=== PATIENT | male | born 1955 | race Caucasian/White ===

== ENCOUNTER → 2018-08-21 13:30 | Outpatient (CLI) | payer OTHER, SELFPAY ==
--- NOTE | 2018-08-21 | DI.US.S_ITS ---
PROCEDURE: US ABDOMEN COMPLETE INDICATIONS: Right lower quadrant pain TECHNIQUE: Real-time scanning was performed of the abdominal and retroperitoneal organs, with image documentation. COMPARISON: None. FINDINGS: Liver: Liver is mildly enlarged in size and homogeneous in echotexture. Gallbladder: Gallbladder is within normal limits. Normal wall thickness at 1.0 mm. No pericholecystic fluid or Gil sign. Biliary ducts: Intrahepatic bile ducts are not significantly dilated. Extrahepatic bile duct caliber measures 8 mm. Normal is 6-7 mm or less in diameter, or 10 mm or less post-cholecystectomy. Pancreas: Pancreatic duct is mildly dilated measuring 4 mm in the pancreatic body. Visualized portions of the pancreas are sonographically normal. No visible pancreatic head mass or calcification. Spleen: Spleen is normal in size and homogeneous in echotexture. Kidneys: Kidneys are normal in size and echotexture. Right kidney measures 12.7 cm long; left kidney measures 13.8 cm long. No hydronephrosis or nephrolithiasis. No solid masses. Aorta: Visualized aorta is normal in caliber at less than 3 cm. Iliacs: Proximal common iliac arteries are normal in caliber at less than 2.5 cm. IVC: Intrahepatic inferior vena cava is patent. Miscellaneous: No free abdominal fluid. The appendix was not visible. IMPRESSION: 1. Mild common bile duct and pancreatic duct dilatation. This implies edema or obstruction at the pancreatic head. Further evaluation with cross-sectional imaging such as CT or MRI with contrast is recommended for further evaluation. 2. No cholelithiasis. 3. Mild hepatomegaly. Dictated by: Celia Kyle M.D. on 08/21/2018 at 15:49 Approved by: Celia Kyle M.D. on 08/21/2018 at 15:53
[2018-08-21 14:12] LABS: Add Manual Diff / Slide Review NO; Basophils Absolute Auto 0 /uL (0-100); Basophils Percent Auto 0.4 % (0-2); Eosinophils Absolute Auto 100 /uL (0-450); Eosinophils Percent Auto 1.4 % (2-4); Hematocrit 49.5 % (41-53); Hemoglobin 16.3 g/dL (13.5-17.5); Lymphocytes Absolute Auto 2000 /uL (1100-4500); Lymphocytes Percent Auto 29.8 % (25-40); Mean Corpuscular HGB Conc 32.9 % (30-36); Mean Corpuscular Hemoglobin 31.6 PG (26-34); Monocytes Absolute Auto 600 /uL (0-900); Monocytes Percent Auto 8.6 % (3-14); Neutrophils Absolute Auto 4100 /uL (1500-7000); Neutrophils Percent Auto 59.8 % (50-75); Platelet Count 269 X10^3/uL (150-400); Red Blood Cell Count 5.16 X10^6/uL (4.5-5.9); Red Cell Distribution Width 13.6 % (11.6-14.8); White Blood Cell Count 6.8 X10^3/uL (4.5-11.0)
[2018-08-21 16:50] LABS: Alanine Aminotransferase 81 IU/L (21-72); Albumin 4.6 g/dL (3.5-5.0); Albumin Globulin Ratio 1.5 (1.0-2.8); Alkaline Phosphatase 74 U/L (38-126); Aspartate Aminotransferase 56 IU/L (17-59); BUN Creatinine Ratio 18.8 (6-22); Bilirubin Total 0.8 mg/dL (0.2-1.3); Blood Urea Nitrogen 15 mg/dL (9-20); Calcium 9.4 mg/dL (8.4-10.2); Carbon Dioxide 24 mmol/L (22-32); Chloride 101 mmol/L (98-107); Estimated Glomerular Filt Rate > 60.0 mL/min (>60); Globulin 3.1 g/dL (1.7-4.1); Glucose 99 mg/dL (80-110); HEMOLYSIS 27 (0-50); Lipase 23 U/L (23-300); Sodium 137 mmol/L (137-145); Total Protein 7.7 g/dL (6.3-8.2)
== END ==
PROVIDERS: Family Provider Internal Medicine; PCP Internal Medicine; Visit Provider Internal Medicine
DX: R10.31 Right lower quadrant pain (principal); K83.8 Other specified diseases of biliary tract; K86.89 Other specified diseases of pancreas; R16.0 Hepatomegaly, not elsewhere classified
CPT/HCPCS: 36415; 76700; 80053; 83690; 85025

== ENCOUNTER → 2018-09-03 08:07 | Outpatient (CLI) | payer OTHER, SELFPAY ==
--- NOTE | 2018-09-03 08:10 | DI.MRI.S_ITS ---
PROCEDURE: MR ABDOMEN WO/W CON INDICATIONS: PANCREATIC DUCT DILATE/RIGHT LOWER QUAD PAIN TECHNIQUE: Coronal HASTE, axial 2D FLASH in- and [id number]; axial breath-hold T2 FSE with fat saturation from the hepatic dome to the iliac crests. Oblique coronal thin-slice and radial thick slab HASTE through the biliary system. Dynamic axial VIBE during administration of contrast. Post-contrast coronal VIBE or 2D FLASH with fat saturation from the hepatic dome to the iliac crests. Optional diffusion weighted imaging and ADC may be performed. COMPARISON: None. FINDINGS: Image quality: Patient motion artifact limits evaluation of the postcontrast study. Pancreas and biliary system: The pancreatic duct measures up to 6 mm in diameter in the body of the pancreas. The common bile duct measures up to 12 mm in diameter. There is conventional pancreatic ductal anatomy. There is a questionable filling defect within the central portion of the common bile duct. This has a layered appearance (series 5, image 28), and may represent layering sludge within the common bile duct. There is no definite enhancement of this region on the postcontrast images. However, motion artifact somewhat limits evaluation. Solid organs: Liver is normal in size and enhancement. Gallbladder is unremarkable. Spleen is normal in size and enhancement. No adrenal nodules. Kidneys are normal in size and enhancement, without hydronephrosis. Nodes and vessels: No retroperitoneal or mesenteric adenopathy by size criteria. Aorta and inferior vena cava are normal in size. Bowel and peritoneum: Unenhanced bowel loops are normal in caliber throughout. No free fluid. Lung bases: No basal pleural effusions. Heart size is normal. Bones and soft tissues: No ventral hernias. Bone marrow is normal in overall signal. IMPRESSION: 1. Limited study due to patient motion artifact. 2. Questionable filling defect which has a layered appearance within the central common bile duct as described above. Although there is no definite enhancement of this region, postcontrast images are limited by patient motion artifact. This may represent sludge layered within the common bile duct. However, if there is clinical suspicion for neoplasm, ERCP may be warranted. 2. Mild pancreatic ductal dilatation within the body. Conventional pancreatic ductal anatomy. Dictated by: Wandy Ramey M.D. on 09/03/2018 at 13:30 Approved by: Wandy Ramey M.D. on 09/03/2018 at 13:36
--- NOTE | 2018-09-03 10:42 | PC.NURSE ---
Line Access: 4 attempts made w/o ultrasound and finally got it on the 3rd attempt with ultrasound. Flushes and withdraws well. pt getting an MRI scan.
== END ==
PROVIDERS: Family Provider Internal Medicine; PCP Internal Medicine; Visit Provider Internal Medicine
DX: K86.89 Other specified diseases of pancreas (principal); R10.31 Right lower quadrant pain
CPT/HCPCS: 74183; A9579

== ENCOUNTER → 2018-10-22 11:11 | Outpatient (CLI) | payer OTHER, SELFPAY ==
[2018-10-22 12:53] LABS: Alanine Aminotransferase 35 IU/L (21-72); Albumin 4.2 g/dL (3.5-5.0); Albumin Globulin Ratio 1.4 (1.0-2.8); Alkaline Phosphatase 51 U/L (38-126); Aspartate Aminotransferase 35 IU/L (17-59); Bilirubin Total 0.9 mg/dL (0.2-1.3); Bilirubin Unconjugated 0.4 mg/dL (0.0-1.1); Globulin 3.1 g/dL (1.7-4.1); Lipase 186 U/L (23-300); Total Protein 7.3 g/dL (6.3-8.2)
[2018-10-22 13:11] LABS: HEMOLYSIS 94 (0-50)
== END ==
PROVIDERS: Family Provider Internal Medicine; PCP Internal Medicine; Visit Provider Internal Medicine Gastroenterology
DX: R93.3 Abnormal findings on diagnostic imaging of other parts of digestive tract (principal)
CPT/HCPCS: 36415; 80076; 83690

== ENCOUNTER → 2019-07-27 12:41 | Outpatient (CLI) | payer OTHER, SELFPAY ==
--- NOTE | 2019-07-27 | DI.MRI.S_ITS ---
PROCEDURE: MR SHOULDER RT WO CON INDICATIONS: Pain in right shoulder TECHNIQUE: Axial fat-suppressed T2-weighted, T1-weighted, Coronal fat-suppressed T2-weighted pulsing was as were performed through the right shoulder however the patient declined to complete the examination secondary to severe discomfort. COMPARISON: None. FINDINGS: Image quality: Excellent. Rotator cuff: Severe supraspinatus and infraspinatus tendinopathy, with partial thickness articular sided tear of the infraspinatus tendon measuring approximately 7 mm and at least 50% of tendon thickness. There is also partial thickness articular sided supraspinatus tear measuring 7 mm at the junction of the critical zone and footprint, probably involving 50% of tendon thickness. Subscapularis tendinopathy and thickening is noted. Visualized portions of the teres minor unavailable pulse sequences grossly unremarkable. Evaluation for rotator cuff muscle atrophy is suboptimal due to lack of all pulse sequences. Bones and bursae: No bone marrow contusions or fractures. Severe hypertrophic acromioclavicular joint degeneration. Severe glenohumeral degenerative joint disease with subchondral cystic change, sclerosis and spurring. Acromion demonstrates conventional anatomy, without an os acromiale. Mild subacromial-subdeltoid bursitis. Capsule and soft tissues: Labrum: Ill-defined macerated tear of the labrum is seen circumferentially there is also slight posterior subluxation of the humeral head relative to the glenoid suggesting microinstability. 5 mm superior para labral cyst noted on image 8/8. Long head of the biceps tendon tendinopathy is seen with intrasubstance signal change. The intra-articular segment is not well visualized suggesting high-grade tendinopathy/partial rupture, or complete rupture recommend correlation to clinical examination findings. IMPRESSION: Suboptimal evaluation secondary to premature termination of the exam due to severe discomfort as detailed above Supraspinatus and infraspinatus tendinopathy with partial-thickness articular sided tear of the tendon probably at least 50% of tendon thickness as detailed above Subscapularis tendinopathy and thickening Severe degenerative joint disease Macerated circumferential tear labrum likely chronic/degenerative. There is slight posterior subluxation of the humerus relative to the glenoid suggestive of microinstability Intra-articular segment of the long head biceps tendon not well seen, potentially indicating high-grade tendinopathy/partial or complete rupture. Mild subacromial-subdeltoid bursitis Dictated by: Spike Martinez M.D. on 07/29/2019 at 9:45 Approved by: Spike Martinez M.D. on 07/29/2019 at 10:01
== END ==
PROVIDERS: Family Provider Internal Medicine; PCP Internal Medicine; Referring Provider Orthopaedic Surgery; Visit Provider Orthopaedic Surgery
DX: M25.511 Pain in right shoulder (principal); M75.111 Incomplete rotator cuff tear or rupture of right shoulder, not specified as traumatic; S43.491A Other sprain of right shoulder joint, initial encounter; M19.011 Primary osteoarthritis, right shoulder; M75.51 Bursitis of right shoulder
CPT/HCPCS: 73221

== ENCOUNTER → 2020-03-13 12:17 | Outpatient (CLI) | payer OTHER, SELFPAY ==
--- NOTE | 2020-03-13 12:20 | DI.RAD.S_ITS ---
PROCEDURE: XR FOOT RT MIN 3V INDICATIONS: Persistent right foot pain TECHNIQUE: 3 views of the foot were acquired. COMPARISON: [facility], , FOOT 2V LEFT, 03/29/2010, 13:01. [facility], , FOOT 2V LEFT, 12/30/2008, 10:44. FINDINGS: Bones: No fractures or dislocations. Note is made of a moderate degree of 1st MTP joint osteoarthritis, with joint space narrowing. No suspicious bony lesions. Soft tissues: No tibiotalar joint effusion. Achilles tendon appears normal. 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 When compared to the left foot plain films the right 1st MTP joint osteoarthritis is asymmetrically prominent when compared to a minimal degree of degeneration on the left. Dictated by: Abhay Colunga M.D. on 03/13/2020 at 13:04 Approved by: Abhay Colunga M.D. on 03/13/2020 at 13:06
== END ==
PROVIDERS: Family Provider Internal Medicine; PCP Family Medicine; Referring Provider Family Medicine; Visit Provider Family Medicine
DX: M79.671 Pain in right foot (principal); M19.071 Primary osteoarthritis, right ankle and foot
CPT/HCPCS: 73630

== ENCOUNTER → 2020-05-11 09:21 | Outpatient (CLI) | payer OTHER, SELFPAY ==
[2020-05-11 10:37] LABS: COVID19 -Nasal RAPID Negative (Negative)
== END ==
PROVIDERS: Family Provider Internal Medicine; PCP Family Medicine; Visit Provider Nurse Practitioner
DX: Z20.828 Contact with and (suspected) exposure to other viral communicable diseases (principal)
CPT/HCPCS: 87635

== ENCOUNTER → 2020-05-13 15:24 | Outpatient (CLI) | payer OTHER, SELFPAY ==
--- NOTE | 2020-05-13 18:38 | DI.NM.S_ITS ---
DATE OF SERVICE: 05/13/2020 PROCEDURE: Exercise perfusion study. CARDIAC STRESS: The patient underwent exercise stress test under the supervision of an attending staff. He walked on Brannon protocol for 7 minutes 21 seconds and achieved 75 percent of target heart rate and normal blood pressure response. The test was discontinued as he could not keep up with treadmill due to his previous leg injury. No active chest pain or significant cardiovascular symptoms. Baseline EKG revealed sinus rhythm. At 5 minutes into exercise, patient started having frequent PVCs, including bigeminy pattern. The patient has both monomorphic ,as well as polymorphic PVCs. Continue toward recovery until 4 minutes of recovery, when it got suppressed. CONCLUSIONS: Submaximal exercise. His stress test was negative for inducible ischemia. The patient achieved 75 percent of target heart rate. Functional aerobic impairment positive 9 percent. Could not keep up with treadmill due to previous injury. Normal blood pressure response. Frequent PVCs during exercise without any ventricular tachycardia. The PVCs were monomorphic, as well as polymorphic. Clinical correlation is recommended. Isac Ashby - Randy/mark doc#: [id number]/job#: [id number] dd: 05/13/2020 17:31:00 dt: 05/13/2020 18:18:00 DICTATING /COPIES TO: Chip Wright MD COPIES MNE: VICENTE;
== END ==
PROVIDERS: Family Provider Internal Medicine; PCP Family Medicine; Referring Provider Family Medicine; Visit Provider Family Medicine
DX: I25.2 Old myocardial infarction (principal); I10 Essential (primary) hypertension
CPT/HCPCS: 93017

== ENCOUNTER → 2020-08-08 11:09 | Outpatient (CLI) | payer OTHER, SELFPAY ==
[2020-08-08 14:53] LABS: COVID19 -Nasal RAPID Negative (Negative)
== END ==
PROVIDERS: Family Provider Internal Medicine; PCP Family Medicine; Visit Provider Physician Assistant
DX: Z20.822 Contact with and (suspected) exposure to COVID-19 (principal)
CPT/HCPCS: 87635

== ENCOUNTER → 2020-08-11 09:30 | Outpatient (CLI) | payer OTHER, SELFPAY ==
[2020-08-11 11:46] LABS: Magnesium 1.9 mg/dL (1.6-2.3)
[2020-08-11 12:15] LABS: Thyroid Stimulating Hormone 3.83 uIU/mL (0.47-4.68)
== END ==
PROVIDERS: Family Provider Internal Medicine; PCP Family Medicine; Referring Provider Internal Medicine Cardiovascular Disease; Visit Provider Internal Medicine Cardiovascular Disease
DX: I10 Essential (primary) hypertension (principal)
CPT/HCPCS: 36415; 83735; 84443

== ENCOUNTER 2020-11-28 15:31 | Emergency (ER) | payer OTHER, SELFPAY ==
[2020-11-28] VITALS (7 sets, daily range): BP systolic 119–127; BP diastolic 66–77; PULSE 65–83; RESP 10–26; TEMP 37.1; O2SAT 92–98; BMI 29.5
--- NOTE | 2020-11-28 15:53 | ED_ITS ---
HPI - Overdose General Chief Complaint: Toxicology Problem Stated Complaint: Oxycodone OD Time Seen by Provider: 11/28/20 15:31 Source: patient and EMS Mode of arrival: EMS Limitations: no limitations History of Present Illness HPI Narrative: Patient is 65-year-old male who presents with opiate overdose. He says he takes dilaudid and oxycodone for chronic ongoing neck pain. He broke his neck 2 and half years ago and since then has been on pain medication. He says he has not taken any stress today he does not use heroin. He was found unresponsive at the [employer] shop. He was given 2 mg of Narcan intranasally and it had no effect he was then given and I 0 with 1 mg and he woke. He denies any suicidal or homicidal ideations. He apparently had 1 alcoholic beverage as well. states that this happened to him once before when he combined alcohol and opiates. Related Data Home Medications Medication Instructions Recorded Confirmed [id number] 1 tab PO DAILY 08/02/19 10/05/20 tablet (Cerovite Senior) aspirin 81 mg tablet,delayed 81 mg PO DAILY 03/28/20 11/28/20 release (Adult Aspirin Regimen) hydromorphone 8 mg tablet 8 mg PO Q4H PRN 11/28/20 11/28/20 multivitamin-iron (hematinic) 1 tab PO DAILY 11/28/20 11/28/20 oxycodone 20 mg tablet 20 mg PO Q4H PRN 11/28/20 11/28/20 oxycodone 40 mg tablet,extended 40 mg PO BID 11/28/20 11/28/20 release,12 hr Previous Rx's Medication Instructions Recorded cetirizine 10 mg tablet See Rx Instructions .ROUTE 01/13/20 .COMPLEX #90 tab metoprolol tartrate 25 mg tablet 25 mg PO BID #180 tab 03/13/20 atorvastatin 80 mg tablet 80 mg PO BEDTIME #90 tab 04/03/20 clopidogrel 75 mg tablet 75 mg PO DAILY #90 tab 04/03/20 lisinopril 5 mg tablet 5 mg PO DAILY #90 tab 04/03/20 sildenafil 100 mg tablet 100 mg PO DAILY PRN #10 tab 10/05/20 duloxetine 60 mg capsule,delayed See Rx Instructions .ROUTE 10/15/20 release .COMPLEX #90 cap gabapentin 100 mg capsule 100 mg PO TID #270 cap 10/15/20 gabapentin 800 mg tablet See Rx Instructions .ROUTE 10/15/20 .COMPLEX #270 tablet tamsulosin 0.4 mg capsule See Rx Instructions .ROUTE 10/15/20 .COMPLEX #90 cap Allergies Allergy/AdvReac Type Severity Reaction Status Date / Time poison oak extract Allergy Severe severe Verified 05/11/20 11:44 blistering/spreading rash Review of Systems Review of Systems Narrative: GENERAL: Denies chills, fatigue, malaise, fever, sweats, travel HEENT: Denies sinus pain, ear pain, sore throat, difficulty swallowing, neck pain RESPIRATORY: Denies dyspnea, cough, wheezing, hemoptysis, sputum. CARDIOVASCULAR: Denies chest pain, palpitations, orthopnea, edema GASTROINTESTINAL: Denies nausea, vomiting, abdominal pain, diarrhea, constipation, melena. : Denies dysuria, frequency, incontinence, hematuria, urinary retention, flank pain. MUSCULOSKELETAL: Denies weakness, joint pain, or bony pain SKIN: No rash, no erythema, no pruritus NEUROLOGIC: Denies weakness, dizziness, headache, numbness, change in speech, confusion PSYCHIATRIC: No concerning psychosocial issues. 12 point review of systems is negative except for those stated above and HPI Patient History Medical History (Updated 11/28/20 @ 17:58 by Sandy Cochran DO) Erectile dysfunction Hallux valgus (acquired), right foot Hypertension Muscle spasm Myocardial infarction Right foot pain Seasonal allergic rhinitis Social History Smoking Status: Current every day smoker Smokeless tobacco user: other quit status: considering quitting alcohol intake: current substance use type: does not use Smoking Status: Current every day smoker alcohol intake frequency: 0-2 drinks per day Alcohol type: beer Substance Use Type: opiates Exam Initial Vital Signs Initial Vital Signs: Vital Signs Temperature 98.8 F 11/28/20 15:33 Pulse Rate 83 11/28/20 15:33 Respiratory Rate 14 11/28/20 15:33 Blood Pressure 119/77 11/28/20 15:33 Pulse Oximetry 95 11/28/20 15:33 GENERAL: Awake alert 65-year-old male able to follow commands and answer questions HEENT: Head atraumatic,EOMI, pupils reactive, face symmetric, [moist] mucous membranes CARDIOVASCULAR: Regular rate and rhythm without murmurs, rubs or gallops. RESPIRATORY: Breath sounds equal bilaterally, no wheezes rales or rhonchi. ABDOMEN: Soft, nontender. Normoactive bowel sounds all 4 quadrants. No guarding or rebound. EXTREMITIES: Normal range of motion, no clubbing or edema. Neurovascularly intact. IO right leg NEUROLOGICAL: Alert and oriented x4. 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 Course Orders Ordered: Discontinued Medications Sodium Chloride (Normal Saline 0.9%) 1,000 mls @ 150 mls/hr IV CONT LEV Last Infusion: 11/28/20 18:07 Dose: 0 mls/hr Documented by: Admin: 11/28/20 16:21 Dose: 150 mls/hr Documented by: FRANCINE Vital Signs Vital signs: Vital Signs - 8 hr 11/28/20 15:33 Temperature 98.8 F Pulse Rate 83 Respiratory Rate 14 Blood Pressure 119/77 Pulse Oximetry 95 MDM - Overdose Lab Data Result diagrams: 11/28/20 15:36 11/28/20 15:36 Labs: Lab Results 11/28/20 11/28/20 11/28/20 Range/Units 15:36 15:36 16:45 WBC 5.4 (4.5-11.0) X10^3/uL RBC 4.55 (4.5-5.9) X10^6/uL Hgb 14.3 (13.5-17.5) g/dL Hct 42.7 (41-53) % MCV 93.9 (80-100) fL MCH 31.4 (26-34) PG MCHC 33.5 (30-36) % RDW 13.5 (11.6-14.8) % Plt Count 215 (150-400) X10^3/uL Neut % (Auto) 52.9 (50-75) % Lymph % (Auto) 36.3 (25-40) % Florence % (Auto) 5.9 (3-14) % Eos % (Auto) 1.4 L (2-4) % Baso % (Auto) 3.5 H (0-2) % Neut # (Auto) 2900 (3607-2357) /uL Lymph # (Auto) 2000 (0296-1439) /uL Florence # (Auto) 300 (0-900) /uL Eos # (Auto) 100 (0-450) /uL Baso # (Auto) 200 H (0-100) /uL Sodium 137 (137-145) mmol/L Potassium 4.0 (3.4-5.1) mmol/L Chloride 104 (98-107) mmol/L Carbon Dioxide 21 L (22-32) mmol/L BUN 14 (9-20) mg/dL Creatinine 0.80 (0.66-1.25) mg/dL Estimated GFR > 60.0 (>60) mL/min BUN/Creatinine Ratio 17.5 (6-22) Glucose 176 H (80-110) mg/dL Calcium 8.8 (8.4-10.2) mg/dL Total Bilirubin 0.5 (0.2-1.3) mg/dL AST 91 H (17-59) IU/L ALT 119 H (<50) IU/L Alkaline Phosphatase 49 (38-126) U/L Total Creatine Kinase 54 L (55-170) U/L CK-MB (CK-2) TNP CK-MB (CK-2) Rel Index TNP Troponin I < 0.012 (0.01-0.034) ng/mL Total Protein 6.8 (6.3-8.2) g/dL Albumin 3.9 (3.5-5.0) g/dL Globulin 2.9 (1.7-4.1) g/dL Albumin/Globulin Ratio 1.3 (1.0-2.8) Salicylates < 1.0 (<20) mg/dL U Opiates 300ng/mL cut Positive H (Negative) Ur Oxycodone Screen Positive H (Negative) Urine Methadone Screen Negative (Negative) Acetaminophen < 10 L (10-30) ug/mL Ur Barbiturates Screen Negative (Negative) U Tricyclic Antidepress Negative (Negative) Ur Phencyclidine Scrn Negative (Negative) Ur Amphetamines Screen Negative (Negative) U Methamphetamines Scrn Negative (Negative) Ur MDMA Scrn (Ecstasy) Negative (Negative) U Benzodiazepines Scrn Negative (Negative) Urine Cocaine Screen Negative (Negative) U Marijuana (THC) Screen Negative (Negative) Ethyl Alcohol 71 H ( - 10) mg/dL Urine Dip Bedside Urine Glucose Negative Bedside Urine Bilirubin - Negative Bedside Urine Ketone - Negative Urine Specific Johnson 1.020 Bedside Urine Occult Blood - Negative Bedside Urine pH 6.0 Bedside Urine Protein - Negative Bedside Urine Urobilinogen - Negative Bedside Urine Nitrite - Negative Bedside Urine Leukocytes - Negative Esterase MDM Narrative Medical decision making narrative: Patient is monitored in the emergency department for over 2 hours. He remains awake alert he does not require any more dosing of Narcan. This is likely the combination of alcohol and opiates like it has been previously. He has chronic pain patient. His he has no suicidal or homicidal ideations. at bedside. IO is removed by myself. Discharge Plan Departure Patient Disposition: Home Clinical Impression: Opioid overdose Qualifiers: Encounter type: initial encounter Injury intent: accidental or unintentional Qualified Code(s): T40.2X1A - Poisoning by other opioids, accidental (unintentional), initial encounter Instructions: DI for Drug Overdose in Adults Activity Restrictions/Additional Instructions: *You have been diagnosed with opiate overdose *What to do: Do not drink alcohol while taking opiates. You are extremely isabell to be alive today *Continue to take medications as directed *Follow up with your primary care provider in 2-3 days *Return to ER if you should have any new, worsening or concerning symptoms Prescriptions: No Action aspirin [Adult Aspirin Regimen] 81 mg tablet,delayed release (DR/EC) 81 mg PO DAILY RF: 0 cetirizine 10 mg tablet See Rx Instructions .ROUTE .COMPLEX Qty: 90 RF: 2 atorvastatin 80 mg tablet 80 mg PO BEDTIME Qty: 90 RF: 3 clopidogrel 75 mg tablet 75 mg PO DAILY Qty: 90 RF: 3 lisinopril 5 mg tablet 5 mg PO DAILY Qty: 90 RF: 3 duloxetine 60 mg capsule,delayed release(DR/EC) See Rx Instructions .ROUTE .COMPLEX Qty: 90 RF: 1 tamsulosin 0.4 mg capsule See Rx Instructions .ROUTE .COMPLEX Qty: 90 RF: 1 gabapentin 800 mg tablet See Rx Instructions .ROUTE .COMPLEX Qty: 270 RF: 0 gabapentin 100 mg capsule 100 mg PO TID Qty: 270 RF: 3 Cerovite Senior Tablet 1 tab PO DAILY RF: 0 sildenafil 100 mg tablet 100 mg PO DAILY PRN (Reason: sexual activity) Qty: 10 RF: 5 metoprolol tartrate 25 mg tablet 25 mg PO BID Qty: 180 RF: 3 hydromorphone 8 mg Tablet 8 mg PO Q4H PRN (Reason: Pain (Scale Score 4-6)) RF: 0 OxyContin 40 mg Tablet Extended Release 12 Hr 40 mg PO BID RF: 0 oxycodone 20 mg Tablet 20 mg PO Q4H PRN (Reason: Pain (Scale Score 4-6)) RF: 0 Certa-Loly Tablet 1 tab PO DAILY RF: 0 Referrals: Gilles Espinoza DO [Primary Care Provider] -
[2020-11-28 16:08] LABS: Add Manual Diff / Slide Review NO; Basophils Absolute Auto 200 /uL (0-100); Basophils Percent Auto 3.5 % (0-2); Eosinophils Absolute Auto 100 /uL (0-450); Eosinophils Percent Auto 1.4 % (2-4); Hematocrit 42.7 % (41-53); Hemoglobin 14.3 g/dL (13.5-17.5); Lymphocytes Absolute Auto 2000 /uL (1100-4500); Lymphocytes Percent Auto 36.3 % (25-40); Mean Corpuscular HGB Conc 33.5 % (30-36); Mean Corpuscular Hemoglobin 31.4 PG (26-34); Mean Corpuscular Volume 93.9 fL (80-100); Monocytes Absolute Auto 300 /uL (0-900); Monocytes Percent Auto 5.9 % (3-14); Neutrophils Absolute Auto 2900 /uL (1500-7000); Neutrophils Percent Auto 52.9 % (50-75); Platelet Count 215 X10^3/uL (150-400); Red Blood Cell Count 4.55 X10^6/uL (4.5-5.9); Red Cell Distribution Width 13.5 % (11.6-14.8); White Blood Cell Count 5.4 X10^3/uL (4.5-11.0)
[2020-11-28 16:21] LABS: Acetaminophen < 10 ug/mL (10-30); Alanine Aminotransferase 119 IU/L (<50); Albumin 3.9 g/dL (3.5-5.0); Albumin Globulin Ratio 1.3 (1.0-2.8); Alkaline Phosphatase 49 U/L (38-126); Aspartate Aminotransferase 91 IU/L (17-59); BUN Creatinine Ratio 17.5 (6-22); Bilirubin Total 0.5 mg/dL (0.2-1.3); Blood Urea Nitrogen 14 mg/dL (9-20); Calcium 8.8 mg/dL (8.4-10.2); Carbon Dioxide 21 mmol/L (22-32); Chloride 104 mmol/L (98-107); Creatine Kinase 54 U/L (55-170); Estimated Glomerular Filt Rate > 60.0 mL/min (>60); Ethanol (ETOH) 71 mg/dL; Globulin 2.9 g/dL (1.7-4.1); Glucose 176 mg/dL (80-110); HEMOLYSIS 18 (0-50); Salicylate < 1.0 mg/dL (<20); Sodium 137 mmol/L (137-145); Total Protein 6.8 g/dL (6.3-8.2)
[2020-11-28] MEDS: SODIUM CHLORIDE 0.9% 1,000 ML 150 ML IV (16:21)
[2020-11-28 16:31] LABS: Troponin I < 0.012 ng/mL (0.01-0.034)
[2020-11-28 17:07] LABS: UR Morphine/Opiate cutoff 300 Positive (Negative); Ur Creatinine Normal (Normal); Ur Specific Gravity Normal (Normal); Urine Amphetamines Negative (Negative); Urine Barbiturates Negative (Negative); Urine Benzodiazepines Negative (Negative); Urine Cocaine Negative (Negative); Urine MDMA Negative (Negative); Urine Methadone Negative (Negative); Urine Methamphetamines Negative (Negative); Urine Oxycodone Positive (Negative); Urine Phencyclidine Negative (Negative); Urine Tetrahydrocannabinol Negative (Negative); Urine Tricyclic Antidepressant Negative (Negative); Urine pH Normal (Normal)
== END 2020-11-28 18:09 | disposition home or self-care (01) ==
PROVIDERS: Emergency Provider Emergency Medicine; Family Provider Internal Medicine; PCP Family Medicine
DX: T40.2X1A Poisoning by other opioids, accidental (unintentional), initial encounter (principal)
CPT/HCPCS: 36415; 80053; 80305; 80320; 80329; 81003; 82550; 84484; 85025; 96360; 96361; 99284; G0480

== ENCOUNTER → 2021-04-13 12:24 | Outpatient (CLI) | payer OTHER, SELFPAY ==
--- NOTE | 2021-04-13 12:26 | DI.US.S_ITS ---
PROCEDURE: US ABDOMEN LIMITED INDICATIONS: ELEVATED LIVER ENZYMES TECHNIQUE: Real-time scanning was performed of the abdominal and retroperitoneal organs, with image documentation. COMPARISON: [facility], US, US ABDOMEN COMPLETE, 08/21/2018, 14:07. FINDINGS: Liver: Liver is normal in size and homogeneous in echotexture. Gallbladder: Gallbladder is surgically absent. Biliary ducts: Intrahepatic bile ducts are non-dilated. Extrahepatic bile duct caliber measures 9.8 mm. Normal is 6-7 mm or less in diameter, or 10 mm or less post-cholecystectomy. Pancreas: Pancreas is obscured by overlying bowel gas. IMPRESSION: Prior cholecystectomy. No gross abnormality is seen in liver. No biliary ductal dilatation for post cholecystectomy patient. Pancreas is obscured by bowel gas. No abdominal free fluid is seen. Dictated by: Olayinka Hernandez M.D. on 04/13/2021 at 14:47 Approved by: Olayinka Hernandez M.D. on 04/13/2021 at 14:47
[2021-04-13 14:00] LABS: Alanine Aminotransferase 109 IU/L (<50); Albumin 4.3 g/dL (3.5-5.0); Albumin Globulin Ratio 1.5 (1.0-2.8); Alkaline Phosphatase 56 U/L (38-126); Aspartate Aminotransferase 71 IU/L (17-59); BUN Creatinine Ratio 20.6 (6-22); Bilirubin Total 0.6 mg/dL (0.2-1.3); Blood Urea Nitrogen 14 mg/dL (9-20); Calcium 9.3 mg/dL (8.4-10.2); Carbon Dioxide 30 mmol/L (22-32); Chloride 99 mmol/L (98-107); Estimated Glomerular Filt Rate > 60.0 mL/min (>60); Globulin 2.8 g/dL (1.7-4.1); Glucose 93 mg/dL (80-110); HEMOLYSIS 22 (0-50); Potassium 4.9 mmol/L (3.4-5.1); Sodium 137 mmol/L (137-145); Total Protein 7.1 g/dL (6.3-8.2)
== END ==
PROVIDERS: Family Provider Internal Medicine; PCP Family Medicine; Referring Provider Family Medicine; Visit Provider Family Medicine
DX: R74.8 Abnormal levels of other serum enzymes (principal); Z90.49 Acquired absence of other specified parts of digestive tract
CPT/HCPCS: 36415; 76705; 80053

== ENCOUNTER → 2021-04-28 14:28 | Outpatient (CLI) | payer OTHER, SELFPAY ==
[2021-04-28 15:36] LABS: Alanine Aminotransferase 89 IU/L (<50); Albumin 4.2 g/dL (3.5-5.0); Albumin Globulin Ratio 1.4 (1.0-2.8); Alkaline Phosphatase 60 U/L (38-126); Aspartate Aminotransferase 60 IU/L (17-59); Bilirubin Total 0.4 mg/dL (0.2-1.3); Blood Urea Nitrogen 7 mg/dL (9-20); Calcium 9.1 mg/dL (8.4-10.2); Carbon Dioxide 35 mmol/L (22-32); Chloride 97 mmol/L (98-107); Estimated Glomerular Filt Rate > 60.0 mL/min (>60); Globulin 3.1 g/dL (1.7-4.1); Glucose 129 mg/dL (80-110); HEMOLYSIS 35 (0-50); Potassium 4.6 mmol/L (3.4-5.1); Sodium 138 mmol/L (137-145); Total Protein 7.3 g/dL (6.3-8.2)
[2021-05-03 12:37] LABS: HCV Genotype 1a (.); HCV LOG 10 6.703 (.)
[2021-05-10 08:11] LABS: HBsAg Screen Negative (Negative); Hepatitis A Antibody IgM Negative (Negative); Hepatitis B Core Antibody IgM Negative (Negative); Hepatitis C Antibody >11.0 s/co ratio (0.0-0.9)
== END ==
PROVIDERS: Family Provider Internal Medicine; PCP Family Medicine; Referring Provider Family Medicine; Visit Provider Family Medicine
DX: R79.89 Other specified abnormal findings of blood chemistry (principal)
CPT/HCPCS: 36415; 80053; 80074; 87522

== ENCOUNTER → 2021-05-05 09:04 | Outpatient (CLI) | payer OTHER, SELFPAY ==
[2021-05-05 11:33] LABS: COVID19 -Nasal RAPID Negative (Negative)
== END ==
PROVIDERS: Family Provider Internal Medicine; PCP Family Medicine; Visit Provider Physician Assistant
DX: Z20.822 Contact with and (suspected) exposure to COVID-19 (principal)
CPT/HCPCS: 87635

== ENCOUNTER 2021-05-07 12:35 | Day surgery (SDC) | payer OTHER, SELFPAY ==
[2021-05-05 12:35] VITALS: BMI 33.0
[2021-05-07 13:04] VITALS: BMI 33.0
[2021-05-07 13:22] VITALS: BP 122/69; PULSE 58; RESP 14; TEMP 36.8; O2SAT 94
[2021-05-07] MEDS: LACTATED RINGERS 1,000 ML 42 ML IV ×3 (13:41→16:15)
--- NOTE | 2021-05-07 13:58 | SUR.PREOP ---
preop-iv attempted x 2 with vein finder.no results. Anesthesia to be notified to start.
--- NOTE | 2021-05-07 14:39 | PM.PREOP ---
Pre-operative Note COVID-19 COVID-19 status: Negative Result date/Date tested (Pos, Neg/Pending): 05/05/21 Interval Note History & Physical reviewed/Exam performed by Physician: Yes Changes to H&P: No
--- NOTE | 2021-05-07 14:39 | PM.OP.1 ---
Operative Date/Time/Diagnoses Date of procedure: 05/07/21 Time of procedure: 14:39 Pre-op diagnosis: Right great toe joint bone spurs and arthritis Post-op diagnosis: same Procedure & Clinicians Procedure: Right first metatarsophalangeal joint cheilectomy Same procedure as scheduled: Yes Indications: 65-year-old male with painful arthritic spurring to the right great toe joint. Conservative measures have failed to alleviate his pain and he wished to have surgical intervention at this time. We spoke of the risks potential complications as well as expected outcomes. Consent was signed, no contraindications to the procedure this time. Surgeon: Naa Peralta Click Yes if Unassisted: Yes Anesthesia Type: MAC +/- and Sedation Operative Notes Closure Type: primary Specimen(s): none sent Estimated Blood Loss (mL): 20 Blood products transfused: none Tourniquet time (min): 32 Procedure in detail: The patient was brought to the operating room and placed on the operating table in the supine position. Tourniquet was placed about the rightankle. Patient is well- padded and appropriately supported. After induction of mild IV sedation, local anesthesia was obtained to the right 1st ray. The rightfoot and ankle were prepped and draped in the usual aseptic manner. The tourniquet was inflated. Incision was made over the right 1st metatarsal phalangeal joint. The incision was deepened through subcutaneous tissues being careful to identify and retract all vital neurovascular structures. All bleeders were cauterized and ligated as necessary. The capsule was entered dorsally at the joint and this exposed the spurring of the dorsal metatarsal head, proximal phalangeal base, and small ossicles/joint mice on the dorsal joint. Of note, the metatarsal head and phalangeal base showed wearing of cartilage surface. The saw and rongeur were used to resect the dorsal joint spurs and remove the ossicles. The medial capsule of the 1st MTPJ was opened and the slightly enlarged medial eminence was also reduced. A rasp was used to reduce the sharp edges of the bone. The area was irrigated with copious amounts normal sterile saline. The toe showed increased motion on dorsiflexion and plantarflexion. The medial 1st metatarsophalangeal joint capsule was repaired using 4-0 Vicryl. Deep and subcutaneous closure was closed performed with Vicryl. The tourniquet was deflated and a prompt hyperemic response was seen to the foot. Nylon suture used to close the skin. The foot was dressed with a lightly compressive sterile dressing. Patient was then placed in a postoperative shoe and transferred to PACU with vital signs stable. Post-operative Condition: stable Disposition: PACU Plan for aftercare: Following a period of postoperative monitoring, the patient will be discharged to home on written and oral postoperative instructions including keeping the dressing dry and intact, avoiding significant ambulation on the foot, icing and elevating the foot when seated home. DVT prevention techniques have been reviewed. For the 1st postoperative visit the dressing will be changed and close to the 3rd postoperative week we will likely remove the sutures.
[2021-05-07] MEDS: CEFAZOLIN 2 GM/20 ML SYRINGE IV (15:00)
[2021-05-07] MEDS: LIDOCAINE 2% INJ MDV 20 ML INJ (15:30)
[2021-05-07] MEDS: BUPIVACAINE 0.5% (PF) VIAL 30 ML INJ (15:31)
--- NOTE | 2021-05-07 15:32 | SUR.OPER ---
Supine on padded OR bed, head on pillow, arms secured on padded arm boards at <90 degrees abduction, legs uncrossed, safety belt at thigh, tape over blanket over lower legs. Bump under right hip. gel pad under left heel/lower leg.
[2021-05-07 16:33] VITALS: BP 152/86; PULSE 57; RESP 16; TEMP 36.3; O2SAT 95
[2021-05-07 16:45] VITALS: BP 150/88; PULSE 57; RESP 16; TEMP 36.3; O2SAT 95
[2021-05-07] MEDS: OXYCODONE/ACETAMINOPHEN 5/325 TABLET 1 TAB PO (16:47)
[2021-05-07 17:00] VITALS: BP 137/81; PULSE 59; RESP 15; TEMP 36.4; O2SAT 96
== END 2021-05-07 17:15 | disposition home or self-care (01) ==
PROVIDERS: Family Provider Internal Medicine; PCP Family Medicine; Referring Provider Podiatrist; Visit Provider Podiatrist
PROC: (CPT 28289; principal; 2021-05-07 14:15)
DX: M19.071 Primary osteoarthritis, right ankle and foot (principal); M77.51 Other enthesopathy of right foot and ankle; M79.674 Pain in right toe(s); I10 Essential (primary) hypertension
CPT/HCPCS: 28289; J0690; J2250; J3010

== ENCOUNTER → 2021-12-07 15:07 | Outpatient (CLI) | payer OTHER, SELFPAY ==
[2021-12-07 15:44] LABS: Alanine Aminotransferase 18 IU/L (<50); Albumin 4.2 g/dL (3.5-5.0); Albumin Globulin Ratio 1.4 (1.0-2.8); Alkaline Phosphatase 64 U/L (38-126); Aspartate Aminotransferase 22 IU/L (17-59); Bilirubin Total 0.6 mg/dL (0.2-1.3); Blood Urea Nitrogen 12 mg/dL (9-20); Calcium 8.8 mg/dL (8.4-10.2); Carbon Dioxide 33 mmol/L (22-32); Chloride 98 mmol/L (98-107); Estimated Glomerular Filt Rate > 60 mL/min (>60); Globulin 3.1 g/dL (1.7-4.1); Glucose 129 mg/dL (80-110); HEMOLYSIS < 15 (0-50); Potassium 4.3 mmol/L (3.4-5.1); Sodium 138 mmol/L (137-145); Total Protein 7.3 g/dL (6.3-8.2)
[2021-12-07 17:14] LABS: Hep C Virus Ab w/Reflex Quant REACTIVE s/c (NEGATIVE)
== END ==
PROVIDERS: Family Provider Internal Medicine; PCP Family Medicine; Referring Provider Family Medicine; Visit Provider Family Medicine
DX: B18.2 Chronic viral hepatitis C (principal); R79.89 Other specified abnormal findings of blood chemistry
CPT/HCPCS: 36415; 80053; 86803; 87522

== ENCOUNTER → 2022-03-28 10:09 | Outpatient (CLI) | payer OTHER, SELFPAY ==
[2022-03-28 12:34] LABS: COVID19 -Nasal RAPID Negative (Negative)
== END ==
PROVIDERS: Family Provider Internal Medicine; PCP Family Medicine; Visit Provider Surgery
DX: Z20.822 Contact with and (suspected) exposure to COVID-19 (principal); Z01.812 Encounter for preprocedural laboratory examination
CPT/HCPCS: 87635; C9803

== ENCOUNTER 2022-03-29 08:55 | Day surgery (SDC) | payer OTHER, SELFPAY ==
[2022-03-29] VITALS (7 sets, daily range): BP systolic 89–152; BP diastolic 58–90; PULSE 67–73; RESP 12–16; TEMP 36.3–36.9; O2SAT 92–95; BMI 31.3
--- NOTE | 2022-03-29 | PATH_ITS ---
[facility] Accession Number: [id number] . 01 Material submitted: . PART A: colon - TRANSVERSE COLON POLYP PART B: colon - SIGMOID COLON POLYP X5 . 01 Diagnosis: A. Transverse Colon Polyp: Portions of serrated lesion x2, cannot completely exclude sessile serrated adenoma. . B. Sigmoid Colon Polyp x5: Portions of tubular adenoma x3. Portions of hyperplastic polyp x4. [facility] 03/31/2022 1035 Local . 01 Electronically signed: . Deepika Corrales MD, Pathologist NPI- [id number] . 01 Gross description: . Part A: TRANSVERSE COLON POLYP: Received in formalin are 2 fragment(s) of samaniego, soft tissue measuring 0.7 x 0.3 x 0.3 cm to 0.5 x 0.3 x 0.2 cm submitted entirely in 1 cassette(s) Part B: SIGMOID COLON POLYP X5: Received in formalin are multiple fragment(s) of samaniego, soft tissue measuring 1.5 x 0.8 x 0.2 cm in aggregate submitted entirely in 1 cassette(s) /CPE 03/30/2022 0927 Local . 01 Pathologist provided ICD-10: K63.5, D12.5, D12.3 . 01 CPT . 326889, [id number] Specimen Comment: A courtesy copy of this report has been sent to [phone] Performed at: 01 [facility] [address] [place] [address] [id number] MD Kyle Queen MD Phone: [phone]
[2022-03-29] MEDS: LACTATED RINGERS 1,000 ML 200 ML IV (09:30)
--- NOTE | 2022-03-29 09:48 | PM.HP.1 ---
History of Present Illness History of Present Illness Date Patient Seen: 03/29/22 Time Patient Seen: 09:48 Chief complaint: Colonoscopy Narrative: The patient presents for colorectal screening. They have never had any previous examination for such. No personal or family history of colon cancer. On further history denies any recent gastrointestinal symptoms. No nausea, vomiting, abdominal pain, loss of appetite, unexplained weight loss, change in bowel habits, diarrhea, constipation, melena, hematochezia, or bright red blood per rectum. Patient History Medical History Aortic root dilation (05/14/20) Ascending aorta dilatation (05/14/20) BPH (benign prostatic hyperplasia) Cervical spine fracture Chronic active hepatitis C Chronic pain disorder Elevated LFTs Erectile dysfunction Hallux valgus (acquired), right foot Hepatitis C Hyperglycemia Hyperlipidemia Hypertension MRSA (methicillin resistant Staphylococcus aureus) (2014) Muscle spasm Myocardial infarction Narcotic overdose (03/06/20) Opioid overdose (11/28/20) Right foot pain Seasonal allergic rhinitis Surgical History History of surgery Hx laparoscopic cholecystectomy (02/06/19) Hx of cervical spine surgery Hx of cervical spine surgery Family & Social History Social History: household members spouse Tobacco & Substance use: Tobacco type e-cigarettes Smoking Status Current every day smoker alcohol intake former alcohol intake frequency 0-2 drinks per day Substance Use Type opiates Meds Home Medications and Allergies Home Medications Medication Instructions Recorded Confirmed Type lsledusuugvd-ojmpcfey-[id number] 1 tab PO DAILY 08/02/19 03/29/22 History tablet (Cerovite Senior) aspirin 81 mg tablet,delayed 81 mg PO DAILY 03/28/20 03/29/22 History release (Adult Aspirin Regimen) hydromorphone 8 mg tablet 8 mg PO Q4H PRN Pain (Scale Score 11/28/20 03/29/22 History 4-6) oxycodone 20 mg tablet 20 mg PO Q4H PRN Pain (Scale Score 11/28/20 03/29/22 History 4-6) oxycodone 40 mg tablet,extended 40 mg PO BID 11/28/20 03/29/22 History release,12 hr tamsulosin 0.4 mg capsule 0.4 mg PO BID #180 caps 07/28/21 03/29/22 Rx duloxetine 60 mg capsule,delayed See Rx Instructions .Route 10/04/21 03/29/22 Rx release .COMPLEX #90 caps gabapentin 100 mg capsule 100 mg PO TID #270 caps 10/04/21 03/29/22 Rx gabapentin 800 mg tablet See Rx Instructions .Route 10/05/21 03/29/22 Rx .COMPLEX #270 tabs sildenafil 100 mg tablet 100 mg PO DAILY PRN sexual 02/16/22 03/29/22 Rx activity #10 tabs lisinopril 5 mg tablet 5 mg PO DAILY #90 tabs 03/02/22 03/29/22 Rx metoprolol tartrate 25 mg tablet 25 mg PO BID #180 tabs 03/02/22 03/29/22 Rx Allergies Allergy/AdvReac Type Severity Reaction Status Date / Time poison oak extract Allergy Severe severe Verified 03/29/22 09:17 blistering/spreading rash Exam Vital Signs (past 8 hours): - 03/29/22 09:30 Temperature 97.4 F L Pulse Rate 71 Respiratory Rate 16 Blood Pressure 152/90 H Pulse Oximetry 95 Oxygen Delivery Method Room Air Oxygen Delivery Method Room Air Narrative Exam Narrative: General adult male alert oriented no acute distress Assessment & Plan Assessment & Plan narrative: The patient requires colorectal screening and colonoscopy is recommended. Technical details were discussed. Risks, benefits, alternatives explained. Risks including but not limited to myocardial infarction, aspiration, bleeding, pain, missed lesion, incomplete examination, need for further radiographic studies, colonic perforation, and need for major abdominal surgery were discussed. All questions were answered to their satisfaction, and they are in agreement with this plan. Time Spent With Patient Critical Care time: I spent a total of [] minutes of critical care time on this patient's care today; this time is exclusive of procedural time.
--- NOTE | 2022-03-29 09:50 | PM.OP.COLON ---
Operative Date/Time/Diagnoses Date of procedure: 03/29/22 Time of procedure: 09:50 Pre-op diagnosis: Screening colonoscopy Post-op diagnosis: same Procedure & Clinicians Study performed: Colonoscopy Same procedure as scheduled: Yes Indications: Screening Surgeon: Linwood Wheeler Procedure Notes Procedure in detail: The history and physical was performed/updated and the patient is ASA class is 3. The procedure was discussed in detail with the patient. Potential risks complications including infection, bleeding, missed diagnosis, perforation, need for surgery, and were explained. Their questions were answered and informed consent was obtained. Patient was brought to the procedure room and placed standard monitoring equipment. The patient's vital signs were monitored continuously throughout the entire procedure. Prior to starting time-out was performed. The patient was placed in the left lateral recumbent position. Procedural sedation was administered by anesthesia. Examination began with a thorough inspection of the perianal area there was no evidence of fissures, fistulae, external hemorrhoids or cutaneous malignancy. The colonoscopy scope was then placed into the anal canal and was advanced to the cecum, which was identified by the ileocecal valve, the appendiceal orifice and the confluence of the taenia. The scope was then slowly withdrawn examining colon thoroughly in all directions, irrigating it of any residual stool. FINDINGS 1. Transverse colon 3 mm polyp removed snare cold 2. Sigmoid colon-diverticulosis. 4 polyps ranging in 3-5 mm removed with cold snare The patient tolerated the procedure well. They will be discharged once criteria are met. The prep was of fair quality. The withdrawl time was 13 minutes. Specimen(s): other (Sigmoid x4 and transverse colonic polyps) Impression: Colonic polyps Post-procedure Plan for aftercare: Follow-up dependent off biopsy results Disposition: same day surgery
== END 2022-03-29 11:02 | disposition home or self-care (01) ==
PROVIDERS: Family Provider Internal Medicine; PCP Family Medicine; Referring Provider Surgery; Visit Provider Surgery
PROC: 0DJD8ZZ Inspection of Lower Intestinal Tract, Via Natural or Artificial Opening Endoscopic (ICD-10-PCS; CPT 45378; principal; 2022-03-29 10:00)
DX: Z12.11 Encounter for screening for malignant neoplasm of colon (principal); K57.30 Diverticulosis of large intestine without perforation or abscess without bleeding; I10 Essential (primary) hypertension; N40.0 Benign prostatic hyperplasia without lower urinary tract symptoms; D12.3 Benign neoplasm of transverse colon; D12.5 Benign neoplasm of sigmoid colon
CPT/HCPCS: 45385; J2704; J3010

== ENCOUNTER 2022-05-21 14:03 | Inpatient (IN) | payer OTHER, SELFPAY ==
[2022-05-21] VITALS (10 sets, daily range): BP systolic 124–181; BP diastolic 58–97; PULSE 85–97; RESP 17–18; TEMP 37.7; O2SAT 89–97; BMI 35.9
[2022-05-21 16:04] LABS: Add Manual Diff / Slide Review NO; Basophils Absolute Auto 100 /uL (0-100); Basophils Percent Auto 0.3 % (0-2); Eosinophils Absolute Auto 0 /uL (0-450); Hematocrit 44.7 % (41-53); Hemoglobin 15.1 g/dL (13.5-17.5); Lymphocytes Absolute Auto 800 /uL (1100-4500); Mean Corpuscular HGB Conc 33.8 % (30-36); Mean Corpuscular Hemoglobin 30.1 PG (26-34); Monocytes Absolute Auto 1600 /uL (0-900); Monocytes Percent Auto 8.2 % (3-14); Neutrophils Absolute Auto 16800 /uL (1500-7000); Neutrophils Percent Auto 87.5 % (50-75); Platelet Count 222 X10^3/uL (150-400); Red Blood Cell Count 5.02 X10^6/uL (4.5-5.9); Red Cell Distribution Width 13.6 % (11.6-14.8); White Blood Cell Count 19.2 X10^3/uL (4.5-11.0)
[2022-05-21 16:05] LABS: Alanine Aminotransferase 18 IU/L (<50); Albumin Globulin Ratio 1.1 (1.0-2.8); Alkaline Phosphatase 62 U/L (38-126); Aspartate Aminotransferase 22 IU/L (17-59); BUN Creatinine Ratio 26.7 (6-22); Blood Urea Nitrogen 24 mg/dL (9-20); Calcium 8.9 mg/dL (8.4-10.2); Carbon Dioxide 33 mmol/L (22-32); Chloride 93 mmol/L (98-107); Estimated Glomerular Filt Rate > 60 mL/min (>60); Globulin 3.6 g/dL (1.7-4.1); Glucose 136 mg/dL (80-110); HEMOLYSIS < 15 (0-50); Lipase 12 U/L (23-300); Sodium 135 mmol/L (137-145); Total Protein 7.6 g/dL (6.3-8.2)
--- NOTE | 2022-05-21 16:30 | DI.CT.S_ITS ---
PROCEDURE: CT ABDOMEN PELVIS W CON INDICATIONS: abd pain TECHNIQUE: After the administration of intravenous contrast, axial sections acquired from the lung bases to the pubic symphysis. Coronal and sagittal reformats were performed. For radiation dose reduction, the following was used: automated exposure control, adjustment of mA and/or kV according to patient size. COMPARISON: None. FINDINGS: Lower thorax: Mild bibasilar atelectasis present. No hiatal hernia. Heart size normal. Liver: Normal in size and attenuation. No contour deformity present. Biliary system: Cholecystectomy. No intra or extrahepatic bile duct dilation. Pancreas: Unremarkable without mass or inflammation evident. Spleen: Normal in size and density. Adrenals: Normal morphology and density. Reproductive system: Unremarkable as visualized. Urinary system: 6 mm calcification the proximal left ureter results in moderate left hydronephrosis and perinephric stranding. Gastrointestinal system: The bowel is unremarkable without evidence of bowel obstruction or inflammation. The stomach appears unremarkable. Appendix: Normal appendix identified. No evidence of appendicitis. Peritoneal spaces: No mesenteric or retroperitoneal adenopathy. No free air. No free fluid. Vasculature: The IVC, aorta and iliac vasculature are unremarkable. Abdominal wall: Left inguinal hernia(s) contain fat without bowel involvement. Musculoskeletal: Normal bone mineralization. Degenerative disc disease and arthropathy noted in lower lumbar spine. No acute fractures. Previous instrumentation noted in the right proximal femur IMPRESSION: 1. Left-sided hydronephrosis and obstructive uropathy results from 6 mm proximal left ureteral calculus Approved by: Bhanu Guardado M.D. on 05/21/2022 at 16:28
[2022-05-21] MEDS: SODIUM CHLORIDE 0.9% 1,000 ML 1000 ML IV (17:12)
[2022-05-21] MEDS: cefTRIAXone 1,000 MG in SODIUM CHLORIDE 0.9% 100 ML 200 MG IV (19:00)
[2022-05-21 19:06] LABS: RBC Urine 10-30/HPF (0-5/HPF); WBC Urine 30-100/HPF (0-5/HPF)
[2022-05-21 19:07] LABS: Bacteria Urine Many (>30); Culture Indicated Urine Specimen Cultured; Squamous Epithelial Cell Urine 0-1 /HPF (0-5/HPF)
[2022-05-21 19:21] LABS: Lactate (Lactic Acid) 1.8 mmol/L (0.7-2.1)
--- NOTE | 2022-05-21 19:34 | ED_ITS ---
HPI - General Adult General Chief complaint: Abdominal Pain Stated complaint: pain on Lside 36hr no eating, sleeping/infection Time Seen by Provider: 05/21/22 18:21 Source: patient and family Mode of arrival: Ambulatory Limitations: no limitations History of Present Illness HPI narrative: Patient is a 66-year-old male. Is here for evaluation of left-sided/left lower quadrant abdominal pain for the past 36 hours. He is also had decreased stool output. No history of bowel obstructions. No history of kidney stones. Has been sleeping more and more confused according to family at bedside. He does take pain medication on a regular basis. Related Data Home Medications Medication Instructions Recorded Confirmed ifkdsuxsohrz-mtbvbffw-rrungv 1 tab PO DAILY 08/02/19 05/21/22 tablet (Cerovite Senior) aspirin 81 mg tablet,delayed 81 mg PO DAILY 03/28/20 05/21/22 release (Adult Aspirin Regimen) oxycodone 20 mg tablet 20 mg PO Q4H PRN Pain (Scale Score 11/28/20 05/21/22 4-6) oxycodone 40 mg tablet,extended 40 mg PO BID 11/28/20 05/21/22 release,12 hr Previous Rx's Medication Instructions Recorded tamsulosin 0.4 mg capsule 0.4 mg PO BID #180 caps 07/28/21 gabapentin 100 mg capsule 100 mg PO TID #270 caps 10/04/21 gabapentin 800 mg tablet See Rx Instructions .Route 10/05/21 .COMPLEX #270 tabs lisinopril 5 mg tablet 5 mg PO DAILY #90 tabs 03/02/22 metoprolol tartrate 25 mg tablet 25 mg PO BID #180 tabs 03/02/22 duloxetine 60 mg capsule,delayed See Rx Instructions .Route 04/28/22 release .COMPLEX #90 caps Allergies Allergy/AdvReac Type Severity Reaction Status Date / Time poison oak extract Allergy Severe severe Verified 05/21/22 14:29 blistering/spreading rash Review of Systems Constitutional Constitutional: Reports system reviewed and no additional complaints, except as documented Cardiovascular Cardiovascular: Reports system reviewed and no additional complaints, except as documented Respiratory Respiratory: Reports system reviewed and no additional complaints, except as documented Gastrointestinal Gastrointestinal: Reports system reviewed and no additional complaints, except as documented Genitourinary Genitourinary: Reports system reviewed and no additional complaints, except as documented Integumentary/Breasts Skin/Breast: Reports system reviewed and no additional complaints, except as documented Neurologic Neurologic: Reports system reviewed and no additional complaints, except as documented Hematologic/Lymphatic On Anticoagulants: No Patient History Medical History Aortic root dilation (05/14/20) Ascending aorta dilatation (05/14/20) BPH (benign prostatic hyperplasia) Cervical spine fracture Chronic active hepatitis C Chronic pain disorder Elevated LFTs Erectile dysfunction Hallux valgus (acquired), right foot Hepatitis C Hyperglycemia Hyperlipidemia Hypertension MRSA (methicillin resistant Staphylococcus aureus) (2014) Muscle spasm Myocardial infarction Narcotic overdose (03/06/20) Opioid overdose (11/28/20) Right foot pain Seasonal allergic rhinitis Surgical History History of surgery Hx laparoscopic cholecystectomy (02/06/19) Hx of cervical spine surgery Hx of cervical spine surgery Social History household members: spouse Smoking Status: Current every day smoker Smokeless tobacco user: other quit status: considering quitting alcohol intake: former substance use type: does not use Smoking Status: Current every day smoker tobacco type: vaping alcohol intake frequency: other Alcohol type: beer Substance Use Type: does not use Exam Initial Vital Signs Initial Vital Signs: Vital Signs Temperature 99.8 F H 05/21/22 14:20 Pulse Rate 95 H 05/21/22 14:20 Respiratory Rate 17 05/21/22 14:20 Blood Pressure 140/74 05/21/22 14:20 Pulse Oximetry 97 05/21/22 14:20 Oxygen Delivery Method 05/21/22 14:20 Const General: comfortable and No ill appearing [facility] Head: normal to inspection and normocephalic Resp Effort & Inspection: normal respiratory effort Auscultation: clear to auscultation bilaterally Cardio Rate: regular rate Rhythm: regular rhythm GI Inspection: normal to inspection Palpation: soft and No tender Back/Spine/Pelvis Back: No CVA tenderness Skin General: no rashes or lesions noted Neuro General: patient alert, patient awake and moves all extremities Extrem General: normal to inspection and capillary refill normal Course Orders Ordered: ED Orders 05/22/22 07:00 Basic Metabolic Panel Stat Complete Blood Count AUTO DIFF Stat Aspirin (Aspirin Ec 81 Mg Tablet) 81 mg PO DAILY [facility] Duloxetine HCl (Duloxetine 30 Mg Capsule) 60 mg PO DAILY [facility] Gabapentin (Gabapentin 300 Mg Capsule) 900 mg PO TID [facility] Last Admin: 05/21/22 23:00 Dose: 900 mg Documented By: AT Ceftriaxone Sodium 1,000 mg/ (Sodium Chloride) 100 mls @ 200 mls/hr IV DAILY [facility] Lisinopril (Lisinopril 5 Mg Tablet) 5 mg PO DAILY [facility] Metoprolol Tartrate (Metoprolol Ir 25 Mg Tablet) 25 mg PO BID [facility] Last Admin: 05/21/22 23:01 Dose: 25 mg Documented By: AT Oxycodone HCl (Oxycodone Er 20 Mg Tab) 20 mg PO BID [facility] Last Admin: 05/21/22 23:02 Dose: 20 mg Documented By: AT Tamsulosin HCl (Tamsulosin 0.4 Mg Capsule) 0.4 mg PO DAILY [facility] Last Admin: 05/21/22 20:19 Dose: 0.4 mg Documented By: SAMARA Discontinued Medications Sodium Chloride (Normal Saline 0.9%) 1,000 mls @ 1,000 mls/hr IV BOLUS ONE Stop: 05/21/22 18:01 Last Infusion: 05/21/22 18:19 Dose: 0 mls/hr Documented By: Admin: 05/21/22 17:12 Dose: 1,000 mls/hr Documented By: CLAIRE Ceftriaxone Sodium 1,000 mg/ (Sodium Chloride) 100 mls @ 200 mls/hr IV NOW ONE Stop: 05/21/22 18:22 Last Infusion: 05/21/22 19:38 Dose: 0 mls/hr Documented By: Admin: 05/21/22 19:00 Dose: 200 mls/hr Documented By: SAMARA Vital Signs Vital signs: Vital Signs - 8 hr 05/21/22 23:30 05/21/22 23:30 05/22/22 00:00 Pulse Rate 85 Blood Pressure 129/58 L 101/54 L Pulse Oximetry 92 05/22/22 00:00 05/22/22 00:30 05/22/22 00:30 Pulse Rate 75 74 Blood Pressure 110/55 L Pulse Oximetry 93 92 05/22/22 01:00 05/22/22 01:00 05/22/22 01:30 Pulse Rate 73 Blood Pressure 93/54 L 105/55 L Pulse Oximetry 92 05/22/22 01:30 05/22/22 02:00 05/22/22 02:00 Pulse Rate 72 74 Blood Pressure 120/60 Pulse Oximetry 93 91 05/22/22 02:30 05/22/22 02:30 Pulse Rate 76 Blood Pressure 120/64 Pulse Oximetry 91 Medical Decision Making Medical Records Medical records reviewed: Yes I reviewed the patient's medical records. Lab Data Lab results reviewed: Yes I reviewed the patient's lab results. Result diagrams: 05/21/22 15:10 05/21/22 14:31 Labs: Lab Results 05/21/22 05/21/22 05/21/22 Range/Units 14:31 15:10 18:25 WBC 19.2 H (4.5-11.0) X10^3/uL RBC 5.02 (4.5-5.9) X10^6/uL Hgb 15.1 (13.5-17.5) g/dL Hct 44.7 (41-53) % MCV 89.0 (80-100) fL MCH 30.1 (26-34) PG MCHC 33.8 (30-36) % RDW 13.6 (11.6-14.8) % Plt Count 222 (150-400) X10^3/uL Neut % (Auto) 87.5 H (50-75) % Lymph % (Auto) 4.0 L (25-40) % Iroquois % (Auto) 8.2 (3-14) % Eos % (Auto) 0.0 L (2-4) % Baso % (Auto) 0.3 (0-2) % Neut # (Auto) 32914 H (8615-0044) /uL Lymph # (Auto) 800 L (9903-7962) /uL [place]quois # (Auto) 1600 H (0-900) /uL Eos # (Auto) 0 (0-450) /uL Baso # (Auto) 100 (0-100) /uL Sodium 135 L (137-145) mmol/L Potassium 4.0 (3.4-5.1) mmol/L Chloride 93 L (98-107) mmol/L Carbon Dioxide 33 H (22-32) mmol/L BUN 24 H (9-20) mg/dL Creatinine 0.90 (0.66-1.25) mg/dL Estimated GFR > 60 (>60) mL/min BUN/Creatinine Ratio 26.7 H (6-22) Glucose 136 H (80-110) mg/dL Lactate (0.7-2.1) mmol/L Calcium 8.9 (8.4-10.2) mg/dL Total Bilirubin 1.0 (0.2-1.3) mg/dL AST 22 (17-59) IU/L ALT 18 (<50) IU/L Alkaline Phosphatase 62 (38-126) U/L Total Protein 7.6 (6.3-8.2) g/dL Albumin 4.0 (3.5-5.0) g/dL Globulin 3.6 (1.7-4.1) g/dL Albumin/Globulin Ratio 1.1 (1.0-2.8) Lipase 12 L (23-300) U/L Urine RBC 10-30/hpf H (0-5/HPF) Urine WBC 30-100/hpf H (0-5/HPF) Ur Squamous Epith Cells 0-1 /hpf (0-5/HPF) Urine Bacteria Many (>30) H (None) Ur Culture Indicated? Specimen cultured SARS-CoV-2 (PCR) (Negative) 05/21/22 05/21/22 Range/Units 18:52 20:15 WBC (4.5-11.0) X10^3/uL RBC (4.5-5.9) X10^6/uL Hgb (13.5-17.5) g/dL Hct (41-53) % MCV (80-100) fL MCH (26-34) PG MCHC (30-36) % RDW (11.6-14.8) % Plt Count (150-400) X10^3/uL Neut % (Auto) (50-75) % Lymph % (Auto) (25-40) % Iroquois % (Auto) (3-14) % Eos % (Auto) (2-4) % Baso % (Auto) (0-2) % Neut # (Auto) (9193-4812) /uL Lymph # (Auto) (0203-0417) /uL Iroquois # (Auto) (0-900) /uL Eos # (Auto) (0-450) /uL Baso # (Auto) (0-100) /uL Sodium (137-145) mmol/L Potassium (3.4-5.1) mmol/L Chloride (98-107) mmol/L Carbon Dioxide (22-32) mmol/L BUN (9-20) mg/dL Creatinine (0.66-1.25) mg/dL Estimated GFR (>60) mL/min BUN/Creatinine Ratio (6-22) Glucose (80-110) mg/dL Lactate 1.8 (0.7-2.1) mmol/L Calcium (8.4-10.2) mg/dL Total Bilirubin (0.2-1.3) mg/dL AST (17-59) IU/L ALT (<50) IU/L Alkaline Phosphatase (38-126) U/L Total Protein (6.3-8.2) g/dL Albumin (3.5-5.0) g/dL Globulin (1.7-4.1) g/dL Albumin/Globulin Ratio (1.0-2.8) Lipase (23-300) U/L Urine RBC (0-5/HPF) Urine WBC (0-5/HPF) Ur Squamous Epith Cells (0-5/HPF) Urine Bacteria (None) Ur Culture Indicated? SARS-CoV-2 (PCR) Negative (Negative) Urine Dip Bedside Urine Glucose Negative Bedside Urine Bilirubin - Negative Bedside Urine Ketone - Negative Urine Specific Jackson 1.015 Bedside Urine Occult Blood +++ Bedside Urine pH 6.0 Bedside Urine Protein + 30 Bedside Urine Urobilinogen +/- 1mg Bedside Urine Nitrite + Positive Bedside Urine Leukocytes + 70 Esterase Point of care testing: Urine Dip Bedside Urine Glucose Negative Bedside Urine Bilirubin - Negative Bedside Urine Ketone - Negative Urine Specific Jackson 1.015 Bedside Urine Occult Blood +++ Bedside Urine pH 6.0 Bedside Urine Protein + 30 Bedside Urine Urobilinogen +/- 1mg Bedside Urine Nitrite + Positive Bedside Urine Leukocytes + [address] scan - abdomen/pelvis: Radiologist's Impression: [address] [address] [address] Scan Report Signed Patient: Isac Ashby MR#: [id number] : 1955 Acct:[id number] Age/Sex: 66 / M Date of Service: 05/21/22 Loc: ED Accession Number: [id number] ?? Procedure: CT abdomen pelvis w con Ordering Provider: Tri Hunt D.O. PROCEDURE:? CT ABDOMEN PELVIS W CON ? INDICATIONS:? abd pain ? TECHNIQUE: ? After the administration of intravenous contrast, axial sections acquired from the lung bases to the pubic symphysis.? Coronal and sagittal reformats were performed.? For radiation dose reduction, the following was used:? automated exposure control, adjustment of mA and/or kV according to patient size.? ? COMPARISON:? None. ? FINDINGS: ? Lower thorax:? Mild bibasilar atelectasis present.? No hiatal hernia.? Heart size normal. ? Liver:? Normal in size and attenuation. No contour deformity present. ? Biliary system:? Cholecystectomy.? No intra or extrahepatic bile duct dilation. ? Pancreas:? Unremarkable without mass or inflammation evident. ? Spleen:? Normal in size and density. ? Adrenals:? Normal morphology and density. ? Reproductive system:? Unremarkable as visualized. ? Urinary system:? 6 mm calcification the proximal left ureter results in moderate left hydronephrosis and perinephric stranding. ? Gastrointestinal system:? The bowel is unremarkable without evidence of bowel obstruction or inflammation. The stomach appears unremarkable. ? Appendix:? Normal appendix identified.? No evidence of appendicitis. ? Peritoneal spaces:? No mesenteric or retroperitoneal adenopathy.? No free air.? No free fluid.? ? Vasculature:? The IVC, aorta and iliac vasculature are unremarkable. ? Abdominal wall:? Left inguinal hernia(s) contain fat without bowel involvement. ? Musculoskeletal:? Normal bone mineralization.? Degenerative disc disease and arthropathy noted in lower lumbar spine.? No acute fractures.? Previous instrumentation n oted in the right proximal femur ? IMPRESSION: ? 1. Left-sided hydronephrosis and obstructive uropathy results from 6 mm proximal left ureteral calculus ? Approved by: Bhanu Guardado M.D. on 05/21/2022 at 16:28? MDM Narrative Medical decision making narrative: Leukocytosis. Urinalysis consistent with urinary tract infection. Has a proximal left-sided 6 mm stone with hydronephrosis. Antibiotics ordered. Patient requiring transfer for urologic intervention. I did discuss this with the patient. Will continue to observe. In the emergency department until disposition can be found. Care turned over to Dr. Cochran to continue to observe until disposition can be made. Discharge Plan Departure Patient Disposition: [facility] Clinical Impression: UTI (urinary tract infection), Hydronephrosis with urinary obstruction due to ureteral calculus Prescriptions: No Action aspirin [Adult Aspirin Regimen] 81 mg tablet,delayed release (DR/EC) 81 mg PO DAILY gabapentin 100 mg capsule 100 mg PO TID Qty: 270 3RF Rx Instructions: TAKE 1 CAPSULE BY MOUTH THREE TIMES DAILY IN ADDITION TO 800MG TABLET (TOTAL 900MG) gabapentin 800 mg tablet See Rx Instructions .ROUTE .COMPLEX Qty: 270 3RF Dose Instruction: TAKE 1 TABLET BY MOUTH THREE TIMES DAILY IN ADDITION TO 100MG CAPSULE (TOTAL 900MG) Rx Instructions: TAKE 1 TABLET BY MOUTH THREE TIMES DAILY IN ADDITION TO 100MG CAPSULE (TOTAL 900MG) metoprolol tartrate 25 mg tablet 25 mg PO BID Qty: 180 3RF lisinopril 5 mg tablet 5 mg PO DAILY Qty: 90 3RF duloxetine 60 mg capsule,delayed release(DR/EC) See Rx Instructions .ROUTE .COMPLEX Qty: 90 0RF Dose Instruction: TAKE 1 CAPSULE BY MOUTH EVERY DAY Rx Instructions: TAKE 1 CAPSULE BY MOUTH EVERY DAY Cerovite Senior Tablet 1 tab PO DAILY tamsulosin 0.4 mg capsule 0.4 mg PO BID Qty: 180 3RF oxycodone 40 mg Tablet Extended Release 12 Hr 40 mg PO BID oxycodone 20 mg Tablet 20 mg PO Q4H PRN (Reason: Pain (Scale Score 4-6)) Referrals: Gilles Espinoza DO [Primary Care Provider] -
[2022-05-21] MEDS: TAMSULOSIN 0.4 MG CAPSULE PO (20:19)
[2022-05-21 20:40] LABS: COVID19 -Nasal RAPID Negative (Negative)
--- NOTE | 2022-05-21 21:53 | PC.NURSE ---
W[employer] note: Spoke to Michaelle at [facility]. Placed patient on her list. She said to call my end ([facility], [facility], and [facility] and she would call her end. [facility]: 1956 Makayla- still on their waiting list. [facility]: 2020 Dionna- on their waiting list still. Lots of boarding patients for them. [facility]: 2054- Yasir- no beds- no movement. But still on waiting list.
[2022-05-21] MEDS: GABAPENTIN 300 MG CAPSULE 900 MG PO (23:00)
[2022-05-21] MEDS: METOPROLOL IR 25 MG TABLET PO (23:01)
[2022-05-21] MEDS: OXYCODONE ER 20 MG TAB PO (23:02)
[2022-05-22] VITALS (41 sets, daily range): BP systolic 93–168; BP diastolic 53–91; PULSE 65–86; RESP 18–24; TEMP 36.7–38.4; O2SAT 90–97
[2022-05-22 08:17] LABS: Acinetobacter baumannii Not Detected (Not Detect); Candida albicans Not Detected (Not Detect); Candida glabrata Not Detected (Not Detect); Candida krusei Not Detected (Not Detect); Candida parapsilosis Not Detected (Not Detect); Candida tropicalis Not Detected (Not Detect); E. coli Detected (Not Detect); Enterobacter cloacae complex Not Detected (Not Detect); Enterobacteriaceae species Detected (Not Detect); Enterococcus species Not Detected (Not Detect); Haemophilus influenzae Not Detected (Not Detect); KPC (carbapenem-resist gene) Not Detected (Not Detect); Listeria monocytogenes Not Detected (Not Detect); Neisseria meningitidis Not Detected (Not Detect); Proteus species Not Detected (Not Detect); Pseudomonas aeruginosa Not Detected (Not Detect); Serratia marcescens Not Detected (Not Detect); Staphylococcus species Not Detected (Not Detect); Streptococcus agalactiae (Gr B Not Detected (Not Detect); Streptococcus pneumonia Not Detected (Not Detect); Streptococcus pyogenes (Gr A) Not Detected (Not Detect); Streptococcus species Not Detected (Not Detect)
[2022-05-22 09:32] LABS: Add Manual Diff / Slide Review NO; Basophils Absolute Auto 0 /uL (0-100); Basophils Percent Auto 0.2 % (0-2); Eosinophils Absolute Auto 0 /uL (0-450); Eosinophils Percent Auto 0.1 % (2-4); Hematocrit 38.2 % (41-53); Hemoglobin 12.9 g/dL (13.5-17.5); Lymphocytes Absolute Auto 500 /uL (1100-4500); Lymphocytes Percent Auto 3.6 % (25-40); Mean Corpuscular HGB Conc 33.9 % (30-36); Mean Corpuscular Volume 88.5 fL (80-100); Monocytes Absolute Auto 1100 /uL (0-900); Monocytes Percent Auto 7.2 % (3-14); Neutrophils Absolute Auto 13000 /uL (1500-7000); Neutrophils Percent Auto 88.9 % (50-75); Platelet Count 190 X10^3/uL (150-400); Red Blood Cell Count 4.31 X10^6/uL (4.5-5.9); Red Cell Distribution Width 13.5 % (11.6-14.8); White Blood Cell Count 14.6 X10^3/uL (4.5-11.0)
[2022-05-22 09:47] LABS: BUN Creatinine Ratio 36.4 (6-22); Blood Urea Nitrogen 24 mg/dL (9-20); Calcium 7.7 mg/dL (8.4-10.2); Carbon Dioxide 29 mmol/L (22-32); Chloride 100 mmol/L (98-107); Estimated Glomerular Filt Rate > 60 mL/min (>60); Glucose 122 mg/dL (80-110); HEMOLYSIS 241 (0-50); Potassium 4.9 mmol/L (3.4-5.1); Sodium 135 mmol/L (137-145)
[2022-05-22] MEDS: TAMSULOSIN 0.4 MG CAPSULE PO (09:59)
[2022-05-22] MEDS: DULOXETINE 30 MG CAPSULE 60 MG PO (09:59)
[2022-05-22] MEDS: lisinopriL 5 MG TABLET PO (10:00)
[2022-05-22] MEDS: METOPROLOL IR 25 MG TABLET PO ×2 (10:01→22:56)
[2022-05-22] MEDS: GABAPENTIN 300 MG CAPSULE 900 MG PO ×2 (10:04→22:56)
[2022-05-22] MEDS: ASPIRIN EC 81 MG TABLET PO (10:04)
[2022-05-22] MEDS: OXYCODONE ER 20 MG TAB PO ×2 (10:22→22:56)
[2022-05-22] MEDS: SODIUM CHLORIDE 0.9% 1,000 ML 150 ML IV (14:11)
[2022-05-22] MEDS: ACETAMINOPHEN 325 MG TABLET 650 MG PO (15:11)
--- NOTE | 2022-05-22 16:49 | DI.RAD.S_ITS ---
PROCEDURE: XR CHEST 1V INDICATIONS: ij placement TECHNIQUE: One view of the chest was acquired. COMPARISON: [facility], , CHEST 1 VIEW, 08/10/2017, 1:40. FINDINGS: Surgical changes and devices: Cervical spine instrumentation, partially imaged. Right IJ central venous line tip in the mid SVC. No pneumothorax. Lungs and pleura: Lungs are clear. No pleural effusions or pneumothorax. Mediastinum: Mediastinal contours appear normal. Heart size is normal. Bones and chest wall: No suspicious bony lesions. Overlying soft tissues appear unremarkable. IMPRESSION: Right IJ central venous line tip in the mid SVC. No pneumothorax. Approved by: Bhanu Guardado M.D. on 05/22/2022 at 16:29
[2022-05-22 17:03] LABS: Add Manual Diff / Slide Review NO; Basophils Absolute Auto 0 /uL (0-100); Basophils Percent Auto 0.4 % (0-2); Eosinophils Absolute Auto 0 /uL (0-450); Hematocrit 38.7 % (41-53); Lymphocytes Absolute Auto 500 /uL (1100-4500); Lymphocytes Percent Auto 4.1 % (25-40); Mean Corpuscular HGB Conc 33.6 % (30-36); Mean Corpuscular Hemoglobin 29.7 PG (26-34); Mean Corpuscular Volume 88.5 fL (80-100); Monocytes Absolute Auto 1000 /uL (0-900); Monocytes Percent Auto 7.6 % (3-14); Neutrophils Absolute Auto 11200 /uL (1500-7000); Neutrophils Percent Auto 87.9 % (50-75); Platelet Count 179 X10^3/uL (150-400); Red Blood Cell Count 4.38 X10^6/uL (4.5-5.9); Red Cell Distribution Width 13.3 % (11.6-14.8); White Blood Cell Count 12.8 X10^3/uL (4.5-11.0)
[2022-05-22 17:16] LABS: Lactate (Lactic Acid) 1.1 mmol/L (0.7-2.1)
[2022-05-22 17:22] LABS: Alanine Aminotransferase 17 IU/L (<50); Albumin 3.2 g/dL (3.5-5.0); Albumin Globulin Ratio 0.9 (1.0-2.8); Alkaline Phosphatase 60 U/L (38-126); Aspartate Aminotransferase 26 IU/L (17-59); Bilirubin Total 0.6 mg/dL (0.2-1.3); Blood Urea Nitrogen 27 mg/dL (9-20); Calcium 8.4 mg/dL (8.4-10.2); Carbon Dioxide 30 mmol/L (22-32); Chloride 95 mmol/L (98-107); Estimated Glomerular Filt Rate > 60 mL/min (>60); Globulin 3.4 g/dL (1.7-4.1); Glucose 124 mg/dL (80-110); HEMOLYSIS 16 (0-50); Potassium 3.7 mmol/L (3.4-5.1); Sodium 136 mmol/L (137-145); Total Protein 6.6 g/dL (6.3-8.2)
[2022-05-22] MEDS: HYDROMORPHONE 1 MG INJ IV (18:05)
[2022-05-22] MEDS: KETOROLAC 30 MG/ML VIAL 15 MG IV (18:05)
[2022-05-22] MEDS: cefTRIAXone 1,000 MG in SODIUM CHLORIDE 0.9% 100 ML 200 MG IV (19:21)
[2022-05-23] VITALS (24 sets, daily range): BP systolic 133–158; BP diastolic 66–103; PULSE 58–71; RESP 20–22; TEMP 37.3; O2SAT 90–96
[2022-05-23] MEDS: SODIUM CHLORIDE 0.9% 1,000 ML 150 ML IV ×3 (00:39→16:23)
[2022-05-23] MEDS: ACETAMINOPHEN 325 MG TABLET 650 MG PO (04:35)
[2022-05-23] MEDS: ONDANSETRON 4 MG/2 ML INJ IV (04:35)
[2022-05-23 06:41] LABS: Lipase 23 U/L (23-300)
[2022-05-23 06:42] LABS: Alanine Aminotransferase 17 IU/L (<50); Albumin 2.9 g/dL (3.5-5.0); Albumin Globulin Ratio 0.9 (1.0-2.8); Alkaline Phosphatase 53 U/L (38-126); Aspartate Aminotransferase 19 IU/L (17-59); BUN Creatinine Ratio 41.2 (6-22); Bilirubin Total 0.5 mg/dL (0.2-1.3); Blood Urea Nitrogen 28 mg/dL (9-20); Carbon Dioxide 30 mmol/L (22-32); Chloride 98 mmol/L (98-107); Estimated Glomerular Filt Rate > 60 mL/min (>60); Globulin 3.2 g/dL (1.7-4.1); Glucose 118 mg/dL (80-110); HEMOLYSIS < 15 (0-50); Potassium 3.6 mmol/L (3.4-5.1); Sodium 134 mmol/L (137-145); Total Protein 6.1 g/dL (6.3-8.2)
[2022-05-23 07:10] LABS: Add Manual Diff / Slide Review NO; Basophils Absolute Auto 0 /uL (0-100); Basophils Percent Auto 0.1 % (0-2); Eosinophils Absolute Auto 0 /uL (0-450); Hematocrit 38.1 % (41-53); Hemoglobin 12.7 g/dL (13.5-17.5); Lymphocytes Absolute Auto 600 /uL (1100-4500); Lymphocytes Percent Auto 5.1 % (25-40); Mean Corpuscular HGB Conc 33.3 % (30-36); Mean Corpuscular Hemoglobin 29.6 PG (26-34); Monocytes Absolute Auto 1200 /uL (0-900); Monocytes Percent Auto 9.3 % (3-14); Neutrophils Absolute Auto 10700 /uL (1500-7000); Neutrophils Percent Auto 85.5 % (50-75); Platelet Count 189 X10^3/uL (150-400); Red Blood Cell Count 4.28 X10^6/uL (4.5-5.9); Red Cell Distribution Width 13.4 % (11.6-14.8); White Blood Cell Count 12.5 X10^3/uL (4.5-11.0)
[2022-05-23 08:35] LABS: Procalcitonin 2.06 ng/mL (<0.5)
[2022-05-23] MEDS: TAMSULOSIN 0.4 MG CAPSULE PO (08:57)
[2022-05-23] MEDS: GABAPENTIN 300 MG CAPSULE 900 MG PO ×3 (08:58→20:46)
[2022-05-23] MEDS: METOPROLOL IR 25 MG TABLET PO ×2 (08:58→20:46)
[2022-05-23] MEDS: DULOXETINE 30 MG CAPSULE 60 MG PO (08:59)
[2022-05-23] MEDS: ASPIRIN EC 81 MG TABLET PO (08:59)
[2022-05-23] MEDS: lisinopriL 5 MG TABLET PO (09:00)
[2022-05-23] MEDS: cefTRIAXone 1,000 MG in SODIUM CHLORIDE 0.9% 100 ML 200 MG IV (09:05)
--- NOTE | 2022-05-23 09:20 | DI.CT.S_ITS ---
PROCEDURE: CT KIDNEY URETER BLADDER (KUB) INDICATIONS: Left flank pain TECHNIQUE: Axial sections were acquired from the lung bases to the pubic symphysis. Coronal and sagittal reformats were performed. For radiation dose reduction, the following was used: automated exposure control, adjustment of mA and/or kV according to patient size. COMPARISON: [facility], CT, CT ABDOMEN PELVIS W CON, 05/21/2022, 16:48. FINDINGS: Left basilar consolidation and small left pleural effusion have increased from prior study. Mild right basilar atelectasis is also increased. Moderate left hydronephrosis secondary to approximately 5 mm calculus in the proximal left ureter (series 2, image 41). Left perinephric fat stranding is stable. No right renal collecting system calculus or hydroureteronephrosis. Remaining solid abdominal visceral structures demonstrate no acute finding. No abnormally dilated or thickened loop of bowel. No pericolonic or mesenteric inflammatory changes. IMPRESSION: No significant change in left hydronephrosis secondary to proximal left ureteral calculus when compared with 05/21/2022 exam. Left basilar consolidation and small left pleural effusion, increased from prior study. Dictated by: Dillon Grimes M.D. on 05/23/2022 at 10:33 Approved by: Dillon Grimes M.D. on 05/23/2022 at 10:35
--- NOTE | 2022-05-23 09:39 | PC.NURSE ---
bed change, new top
[2022-05-23] MEDS: OXYCODONE ER 20 MG TAB PO ×2 (09:50→12:33)
[2022-05-23] MEDS: MORPHINE 2 MG/ML INJ 4 MG IV ×2 (12:05→16:23)
[2022-05-23] MEDS: OXYCODONE IR 5 MG TABLET 20 MG PO ×2 (12:39→20:47)
[2022-05-23] MEDS: OXYCODONE ER 20 MG TAB 40 MG PO (20:46)
[2022-05-24] MEDS: SODIUM CHLORIDE 0.9% 1,000 ML 150 ML IV ×2 (01:40→08:33)
[2022-05-24] MEDS: MORPHINE 4 MG/ML INJ IV (03:55)
[2022-05-24 04:15] VITALS: BP 144/74; PULSE 60; RESP 14; TEMP 37.3; O2SAT 96
[2022-05-24] MEDS: TAMSULOSIN 0.4 MG CAPSULE PO (08:26)
[2022-05-24] MEDS: ASPIRIN EC 81 MG TABLET PO (08:27)
[2022-05-24] MEDS: GABAPENTIN 300 MG CAPSULE 900 MG PO ×3 (08:27→20:43)
[2022-05-24] MEDS: DULOXETINE 30 MG CAPSULE 60 MG PO (08:27)
[2022-05-24] MEDS: METOPROLOL IR 25 MG TABLET PO ×2 (08:28→20:43)
[2022-05-24] MEDS: lisinopriL 5 MG TABLET PO (08:28)
[2022-05-24] MEDS: OXYCODONE IR 5 MG TABLET 20 MG PO ×5 (08:29→20:44)
[2022-05-24] MEDS: cefTRIAXone 1,000 MG in SODIUM CHLORIDE 0.9% 100 ML 200 MG IV (08:30)
[2022-05-24] MEDS: OXYCODONE ER 20 MG TAB 40 MG PO ×2 (08:51→21:50)
[2022-05-24 08:52] LABS: Add Manual Diff / Slide Review NO; Basophils Absolute Auto 0 /uL (0-100); Basophils Percent Auto 0.2 % (0-2); Eosinophils Absolute Auto 0 /uL (0-450); Eosinophils Percent Auto 0.4 % (2-4); Hematocrit 36.7 % (41-53); Hemoglobin 12.3 g/dL (13.5-17.5); Lymphocytes Absolute Auto 600 /uL (1100-4500); Lymphocytes Percent Auto 7.3 % (25-40); Mean Corpuscular HGB Conc 33.4 % (30-36); Mean Corpuscular Hemoglobin 29.7 PG (26-34); Mean Corpuscular Volume 89.1 fL (80-100); Monocytes Absolute Auto 1400 /uL (0-900); Monocytes Percent Auto 15.9 % (3-14); Neutrophils Absolute Auto 6700 /uL (1500-7000); Neutrophils Percent Auto 76.2 % (50-75); Platelet Count 212 X10^3/uL (150-400); Red Blood Cell Count 4.12 X10^6/uL (4.5-5.9); Red Cell Distribution Width 13.4 % (11.6-14.8); White Blood Cell Count 8.8 X10^3/uL (4.5-11.0)
[2022-05-24 09:13] LABS: Alanine Aminotransferase 16 IU/L (<50); Albumin 2.6 g/dL (3.5-5.0); Albumin Globulin Ratio 0.9 (1.0-2.8); Alkaline Phosphatase 46 U/L (38-126); Aspartate Aminotransferase 20 IU/L (17-59); BUN Creatinine Ratio 26.6 (6-22); Bilirubin Total 0.3 mg/dL (0.2-1.3); Blood Urea Nitrogen 17 mg/dL (9-20); Calcium 7.8 mg/dL (8.4-10.2); Carbon Dioxide 27 mmol/L (22-32); Chloride 100 mmol/L (98-107); Estimated Glomerular Filt Rate > 60 mL/min (>60); Glucose 89 mg/dL (80-110); HEMOLYSIS < 15 (0-50); Lipase 27 U/L (23-300); Potassium 3.4 mmol/L (3.4-5.1); Sodium 133 mmol/L (137-145); Total Protein 5.6 g/dL (6.3-8.2)
[2022-05-24 09:28] LABS: Procalcitonin 1.05 ng/mL (<0.5)
[2022-05-24 18:47] VITALS: BP 157/83; PULSE 60; O2SAT 93
--- NOTE | 2022-05-24 19:20 | PC.NURSE ---
Report received - assumed care of pt at this time
--- NOTE | 2022-05-24 19:45 | PC.NURSE ---
Ambulatory to the bathroom - steady gait unassisted
--- NOTE | 2022-05-24 20:30 | PC.NURSE ---
MD at bedside - family present
--- NOTE | 2022-05-24 20:40 | PC.NURSE ---
In to bedside to medicate pt at this time - given po fluid - tolerated well
--- NOTE | 2022-05-24 21:02 | PC.NURSE ---
Addendum entered by Jeane Goncalves CNA 05/25/22 00:53: 0045: Spoke to Michaelle at [facility]. She said she's still working on it. Original Note: SUMEET note: Attempting to transfer patient. Here's who I called, when, and who I spoke to: [facility]: 2021- Windy- No beds. [facility]: 2024- Abhijeet- they're slightly better than earlier in this week. Zero beds. [facility]: Yasir- No beds/no movement
--- NOTE | 2022-05-24 22:15 | PC.NURSE ---
pt frequently ambulates around the ER - having a difficult time sitting still - antsy - states that he feels like time is passing too slow - no c/o at this time
--- NOTE | 2022-05-24 23:00 | PC.NURSE ---
No changes in pt status - lays down on the bed for awhile then gets up to the bathroom or ambulates around the ER - calm and cooperative - pleasant - NAD - no needs voiced
--- NOTE | 2022-05-24 23:30 | PC.NURSE ---
Medicated at this time - tolerated well - alert and oriented - PWD with respirations equal and unlabored bilaterally
[2022-05-25] VITALS (27 sets, daily range): BP systolic 136–163; BP diastolic 73–110; PULSE 58–73; RESP 12–20; TEMP 36.5–37.2; O2SAT 86–97; BMI 35.9
--- NOTE | 2022-05-25 | DI.RAD.S_ITS ---
PROCEDURE: XR KUB INDICATIONS: Left proximal ureteral calculus TECHNIQUE: One view of the abdomen acquired. COMPARISON: [facility], CT, CT KIDNEY URETER BLADDER (KUB), 05/23/2022, 10:25. FINDINGS: Surgical changes and devices: Surgical clips within the right upper quadrant are present. Bowel: Bowel gas pattern is normal. Soft tissues: No suspicious abdominal calcifications. Visualized solid organ contours appear normal in size. Bones: No suspicious bony lesions. IMPRESSION: Nonvisualization of the patient's known left ureteral calculus. Dictated by: Onofre Marcelino M.D. on 05/25/2022 at 10:03 Approved by: Onofre Marcelino M.D. on 05/25/2022 at 10:04
--- NOTE | 2022-05-25 | DI.RAD.S_ITS ---
PROCEDURE: XR ABDOMEN 1V INDICATIONS: LEFT STENT PLACEMENT TECHNIQUE: Single intra-operative images acquired by the Urology service. COMPARISON: None. FINDINGS: Single intraoperative low resolution fluoroscopic spot film was obtained shows stent catheter partially looped in the left flank IMPRESSION: Fluoroscopic guidance Approved by: Bhanu Guardado M.D. on 05/25/2022 at 17:35
--- NOTE | 2022-05-25 00:30 | PC.NURSE ---
Resting quietly in room - NAD - no needs voiced - occasionally wanders around ER - PWD
--- NOTE | 2022-05-25 01:30 | PC.NURSE ---
No changes in pt status at this time
--- NOTE | 2022-05-25 02:30 | PC.NURSE ---
No changes at this time
--- NOTE | 2022-05-25 03:00 | PC.NURSE ---
States that he would like some more pain medication at this time - states that his back is hurting and he is having a difficult time sleeping
--- NOTE | 2022-05-25 03:15 | PC.NURSE ---
in to medicate pt - asleep with respirations equal and unlabored bilaterally - left to sleep
[2022-05-25] MEDS: OXYCODONE IR 5 MG TABLET 20 MG PO ×3 (03:22→14:09)
--- NOTE | 2022-05-25 03:30 | PC.NURSE ---
awakens at this time - given the pain medication to take at this time - tolerated well - given po fluid
--- NOTE | 2022-05-25 04:15 | PC.NURSE ---
No changes in pt status at this time
--- NOTE | 2022-05-25 05:00 | PC.NURSE ---
No changes at this time
--- NOTE | 2022-05-25 06:08 | PC.NURSE ---
Ambulatory to the bathroom - steady gait
--- NOTE | 2022-05-25 07:26 | PC.NURSE ---
Report to dayshift RN team - care relinquished at this time
[2022-05-25] MEDS: HYDROMORPHONE 1 MG INJ IV (09:12)
[2022-05-25] MEDS: OXYCODONE ER 20 MG TAB 40 MG PO (09:22)
[2022-05-25] MEDS: METOPROLOL IR 25 MG TABLET PO (09:23)
[2022-05-25] MEDS: GABAPENTIN 300 MG CAPSULE 900 MG PO (09:25)
[2022-05-25] MEDS: TAMSULOSIN 0.4 MG CAPSULE PO (09:26)
[2022-05-25] MEDS: ASPIRIN EC 81 MG TABLET PO (09:27)
[2022-05-25] MEDS: LACTATED RINGERS 1,000 ML 150 ML IV (09:32)
[2022-05-25] MEDS: cefTRIAXone 1,000 MG in SODIUM CHLORIDE 0.9% 100 ML 200 MG IV ×2 (09:33→11:08)
--- NOTE | 2022-05-25 09:35 | PM.HP.1 ---
History of Present Illness History of Present Illness Date Patient Seen: 05/25/22 Time Patient Seen: 11:00 Chief complaint: pain on Lside 36hr no eating, sleeping/infection Narrative: Isac Ashby is a 66yo male with PMH of PMH, chronic hep C, HTN, HLD, MRSA, opioid and alcohol abuse and cervical fusion who presented to the ED on 05/21 with sepsis due to impacted left 6mm stone. Found to have E. coli bacteremia and placed on rocephin. No urologist was on-call so transfer was attempted to no avail. Dr. West came on-call today so patient will go to the OR for stent placement at 1600 today. Patient's pain currently tolerable. He wants to go home following the stent placement. Patient History Medical History Aortic root dilation (05/14/20) Ascending aorta dilatation (05/14/20) BPH (benign prostatic hyperplasia) Cervical spine fracture Chronic active hepatitis C Chronic pain disorder Elevated LFTs Erectile dysfunction Hallux valgus (acquired), right foot Hepatitis C Hyperglycemia Hyperlipidemia Hypertension MRSA (methicillin resistant Staphylococcus aureus) (2014) Muscle spasm Myocardial infarction Narcotic overdose (03/06/20) Opioid overdose (11/28/20) Right foot pain Seasonal allergic rhinitis Surgical History History of surgery Hx laparoscopic cholecystectomy (02/06/19) Hx of cervical spine surgery Hx of cervical spine surgery Family & Social History Social History: household members spouse Safety & Behavioral: Feels Safe in Current Yes Environment Been Physically Hurt or No Threatened By a Person Tobacco & Substance use: Tobacco type e-cigarettes Smoking Status Current every day smoker alcohol intake former alcohol intake frequency other Substance Use Type does not use Meds Home Medications and Allergies Home Medications Medication Instructions Recorded Confirmed Type [id number]-gyfceych-pqoqdr 1 tab PO DAILY 08/02/19 05/21/22 History tablet (Cerovite Senior) aspirin 81 mg tablet,delayed 81 mg PO DAILY 03/28/20 05/21/22 History release (Adult Aspirin Regimen) oxycodone 20 mg tablet 20 mg PO Q4H PRN Pain (Scale Score 11/28/20 05/21/22 History 4-6) oxycodone 40 mg tablet,extended 40 mg PO BID 11/28/20 05/21/22 History release,12 hr tamsulosin 0.4 mg capsule 0.4 mg PO BID #180 caps 07/28/21 05/21/22 Rx gabapentin 100 mg capsule 100 mg PO TID #270 caps 10/04/21 05/21/22 Rx gabapentin 800 mg tablet See Rx Instructions .Route 10/05/21 05/21/22 Rx .COMPLEX #270 tabs lisinopril 5 mg tablet 5 mg PO DAILY #90 tabs 03/02/22 05/21/22 Rx metoprolol tartrate 25 mg tablet 25 mg PO BID #180 tabs 03/02/22 05/21/22 Rx duloxetine 60 mg capsule,delayed See Rx Instructions .Route 04/28/22 05/21/22 Rx release .COMPLEX #90 caps levofloxacin 750 mg tablet 750 mg PO DAILY 10 days #10 tabs 05/25/22 Rx Allergies Allergy/AdvReac Type Severity Reaction Status Date / Time poison oak extract Allergy Severe severe Verified 05/25/22 15:11 blistering/spreading rash Review of Systems Review of Systems Narrative: All other systems reviewed with the patient and are negative unless otherwise stated. Exam Vital Signs (past 8 hours): Oxygen Delivery Method Room Air Oxygen Flow Rate 3 Narrative Exam Narrative: GEN: no acute distress HEENT: moist mucous membranes, PERRL NECK: trachea midline, no JVD CV: regular rate and rhythm, no murmurs PULM: clear bilaterally ABD: soft, nontender, nondistended, no organomegaly EXT: warm and well perfused with no edema NEURO: awake, alert, oriented, no focal deficits Objective Labs Result Diagrams: 05/24/22 08:45 05/24/22 08:45 Assessment & Plan Assessment & Plan narrative: # sepsis secondary to E coli bacteremia, pyelonephritis from impacted kidney stone, sepsis now resolved -CT abdomen pelvis with 6 mm proximal ureteral stone with mod hydronephrosis and perinephric stranding -Dr. West, urology will take for stent placement at 4:00 p.m. today -continue NPO -increase Rocephin from 1 g to 2 g daily due to bacteremia -leukocytosis now resolved, procalcitonin downtrending -following surgery can deescalate to oral Levaquin to complete 14 days -will follow-up in Urology Clinic for stone removal at later time # depression, chronic -continue home duloxetine # cervical stenosis and chronic pain, chronic -continue home oxycodone and gabapentin # BPH, chronic -continue home Flomax # hypertension, chronic -continue home lisinopril # chronic hep C -hep C antibody positive, quantitative RNA undetectable Code status is full code. COVID negative. DVT prophylaxis with SCDs. Proxy is Jyoti. I have reviewed home meds and used all available resources to reconcile the home meds. This patient will be admitted as inpatient and will require greater than 2 midnights of hospital time to treat bacteremia. Time Spent With Patient Critical Care time: I spent a total of [] minutes of critical care time on this patient's care today; this time is exclusive of procedural time.
[2022-05-25] MEDS: DULOXETINE 30 MG CAPSULE 60 MG PO (09:46)
[2022-05-25] MEDS: lisinopriL 5 MG TABLET PO (09:46)
[2022-05-25 10:26] LABS: COVID19 -Nasal RAPID Negative (Negative)
[2022-05-25] MEDS: MORPHINE 4 MG/ML INJ IV (11:10)
[2022-05-25] MEDS: LACTATED RINGERS 1,000 ML 21 ML IV (15:38)
--- NOTE | 2022-05-25 16:57 | PM.OP.1 ---
Operative Date/Time/Diagnoses Date of procedure: 05/25/22 Time of procedure: 04:45 Pre-op diagnosis: 1. Obstructing 6 mm left proximal ureteral calculus. 2. E coli urosepsis. Post-op diagnosis: same Procedure & Clinicians Procedure: 1. Cystoscopy/left ureteral stone manipulation without removal. 2. Cystoscopy/placement left ureteral stent (8 Somali by 22-32 cm multi-length). Same procedure as scheduled: Yes Indications: 1. Obstructing 6 mm left proximal ureteral calculus. 2. E coli urosepsis. Surgeon: Lili West Click Yes if Unassisted: Yes Anesthesia Type: General Operative Notes Findings: 1. Urethra-normal caliber without annular stricture or lesion. 2. External sphincter-coapted with normal overlying urothelium. 3. Prostate-4 cm length with moderate obstructing trilobar hyperplasia. 4. Bladder-1+ trabeculation. Normal ureteral orifices bilaterally. Following manipulation and positioning of left ureteral stent purulent material effluxed from the left ureteral orifice. Closure Type: not applicable Specimen(s): none sent Applied: other (Eight Somali by 22-32 cm multilink stent) Estimated Blood Loss (mL): 0 Blood products transfused: none Procedure in detail: Patient was positioned supine was administered general anesthesia. He was then repositioned semi lithotomy and lower abdomen, genitalia, and groin were then prepped and draped in sterile fashion. The 22 Somali panendoscope was then passed the lower urinary tract with the findings as described above. A 0.35 hybrid guidewire was then advanced through the working channel of the panendoscope and advanced in the left ureteral orifice and advanced proximally under direct and fluoroscopic guidance. Next, an 8 Somali by 22-32 cm multi-length stent was selected this was advanced over the hybrid guidewire, again under direct fluoroscopic guidance. Stent was positioned satisfactorily in the left collecting system. NO RETRIEVAL LINE WAS LEFT ATTACHED. The bladder was then drained completely and all instrumentation was removed. The patient was then repositioned in supine, was awakened, transferred to [facility], and then transported PACU in stable condition. Complications: none Post-operative Condition: stable Disposition: PACU Plan for aftercare: Admit acute care-hospitalist service.
--- NOTE | 2022-05-25 17:16 | P.DS_ITS ---
History of Present Illness History of Present Illness Date Patient Seen: 05/25/22 Time Patient Seen: 17:16 Chief complaint: pain on Lside 36hr no eating, sleeping/infection Narrative: Isac Ashby is a 66yo male with PMH of PMH, chronic hep C, HTN, HLD, MRSA, opioid and alcohol abuse and cervical fusion who presented to the ED on 05/21 with sepsis due to impacted left 6mm stone. Found to have E. coli bacteremia and placed on rocephin. No urologist was on-call so transfer was attempted to no avail. Dr. West came on-call today so patient will go to the OR for stent placement at 1600 today. Patient's pain currently tolerable. He wants to go home following the stent placement. Discharge Providers Provider Date of admission: 05/25/22 09:45 Discharge Date: 05/25/22 Primary care physician: Gilles Espinoza DO Discharge provider: Kain Xavier DO Summary Hospital Course Discharge Diagnosis: # sepsis secondary to E coli bacteremia, pyelonephritis from impacted kidney stone, sepsis now resolved -CT abdomen pelvis with 6 mm proximal ureteral stone with mod hydronephrosis and perinephric stranding -Dr. West, urology will take for stent placement at 4:00 p.m. today -continue NPO -received 4 days of IV rocephin, discharged on 10 days of po levaquin -leukocytosis now resolved, procalcitonin downtrending -will follow-up in Urology Clinic for stone removal at later time # depression, chronic -continue home duloxetine # cervical stenosis and chronic pain, chronic -continue home oxycodone and gabapentin # BPH, chronic -continue home Flomax # hypertension, chronic -continue home lisinopril # chronic hep C -hep C antibody positive, quantitative RNA undetectable Hospital Course: Admitted after being in the ED for 4 days waiting for transfer for urology due to impacted kidney stone, pyelonephritis and E. coli bacteremia. Urology on site returned on 05/25 and took patient to OR for stent placement which was successful. He was discharged home that same day on 10 more days of po levaquin. He will f/u with urology as outpatient for stone removal. Time Spent with Patient Time spent: Greater than 30 minutes Exam Vital Signs (past 8 hours): - 05/25/22 09:46 05/25/22 09:56 05/25/22 09:20 Temperature 98.9 F Pulse Rate 64 Respiratory Rate Blood Pressure 160/83 H 156/82 H Pulse Oximetry Oxygen Delivery Method Nasal Cannula Oxygen Flow Rate 2 05/25/22 09:21 05/25/22 09:30 05/25/22 09:30 Temperature Pulse Rate 68 69 Respiratory Rate Blood Pressure 160/83 H Pulse Oximetry 97 93 Oxygen Delivery Method Oxygen Flow Rate 3 05/25/22 10:00 05/25/22 10:00 05/25/22 10:30 Temperature Pulse Rate 63 Respiratory Rate 20 Blood Pressure 157/82 H 140/78 Pulse Oximetry 94 Oxygen Delivery Method Nasal Cannula Oxygen Flow Rate 2 05/25/22 10:30 05/25/22 11:00 05/25/22 11:06 Temperature Pulse Rate 59 L 59 L Respiratory Rate Blood Pressure 156/82 H Pulse Oximetry 93 91 Oxygen Delivery Method Oxygen Flow Rate 05/25/22 11:06 05/25/22 11:30 05/25/22 12:00 Temperature Pulse Rate 58 L 61 61 Respiratory Rate Blood Pressure Pulse Oximetry 94 86 L 94 Oxygen Delivery Method Oxygen Flow Rate 05/25/22 12:01 05/25/22 12:01 05/25/22 12:30 Temperature Pulse Rate 63 Respiratory Rate Blood Pressure 146/73 H 140/110 H Pulse Oximetry 94 Oxygen Delivery Method Oxygen Flow Rate 05/25/22 12:30 05/25/22 13:00 05/25/22 13:01 Temperature Pulse Rate 58 L 62 61 Respiratory Rate Blood Pressure Pulse Oximetry 93 96 95 Oxygen Delivery Method Oxygen Flow Rate 05/25/22 13:01 05/25/22 13:33 05/25/22 13:59 Temperature Pulse Rate 67 59 L Respiratory Rate Blood Pressure 153/85 H Pulse Oximetry 91 93 Oxygen Delivery Method Oxygen Flow Rate 05/25/22 13:59 05/25/22 14:00 05/25/22 14:00 Temperature Pulse Rate 59 L Respiratory Rate Blood Pressure 162/85 H 148/80 H Pulse Oximetry 93 Oxygen Delivery Method Oxygen Flow Rate 05/25/22 14:30 05/25/22 14:30 05/25/22 15:35 Temperature 97.7 F Pulse Rate 58 L 60 Respiratory Rate 12 Blood Pressure 143/76 H 163/90 H Pulse Oximetry 92 95 Oxygen Delivery Method Room Air Oxygen Flow Rate 05/25/22 16:54 05/25/22 16:59 05/25/22 17:04 Temperature 97.7 F Pulse Rate 68 71 73 Respiratory Rate 14 14 15 Blood Pressure 149/76 H 142/76 H 143/83 H Pulse Oximetry 93 93 93 Oxygen Delivery Method Room Air Room Air Room Air Oxygen Flow Rate 05/25/22 17:09 Temperature Pulse Rate 65 Respiratory Rate 18 Blood Pressure 145/82 H Pulse Oximetry 93 Oxygen Delivery Method Room Air Oxygen Flow Rate Oxygen Delivery Method Room Air Oxygen Flow Rate 2 Narrative Exam Narrative: GEN: no acute distress HEENT: moist mucous membranes, PERRL NECK: trachea midline, no JVD CV: regular rate and rhythm, no murmurs PULM: clear bilaterally ABD: soft, nontender, nondistended, no organomegaly EXT: warm and well perfused with no edema NEURO: awake, alert, oriented, no focal deficits Objective Labs Result Diagrams: 05/24/22 08:45 05/24/22 08:45 Labs: Laboratory Results - last 24 hr 05/25/22 05/25/22 05/25/22 09:50 09:50 09:50 WBC Cancelled RBC Cancelled Hgb Cancelled Hct Cancelled MCV Cancelled MCH Cancelled MCHC Cancelled RDW Cancelled Plt Count Cancelled Neut % (Auto) Cancelled Lymph % (Auto) Cancelled Pickett % (Auto) Cancelled Eos % (Auto) Cancelled Baso % (Auto) Cancelled Neut # (Auto) Cancelled Lymph # (Auto) Cancelled Pickett # (Auto) Cancelled Eos # (Auto) Cancelled Baso # (Auto) Cancelled Sodium Cancelled Potassium Cancelled Chloride Cancelled Carbon Dioxide Cancelled BUN Cancelled Creatinine Cancelled Estimated GFR Cancelled BUN/Creatinine Ratio Cancelled Glucose Cancelled Calcium Cancelled Total Bilirubin Cancelled AST Cancelled ALT Cancelled Alkaline Phosphatase Cancelled Total Protein Cancelled Albumin Cancelled Globulin Cancelled Albumin/Globulin Ratio Cancelled Lipase Cancelled Procalcitonin Cancelled SARS-CoV-2 (PCR) 05/25/22 09:50 WBC RBC Hgb Hct MCV MCH MCHC RDW Plt Count Neut % (Auto) Lymph % (Auto) Pickett % (Auto) Eos % (Auto) Baso % (Auto) Neut # (Auto) Lymph # (Auto) Pickett # (Auto) Eos # (Auto) Baso # (Auto) Sodium Potassium Chloride Carbon Dioxide BUN Creatinine Estimated GFR BUN/Creatinine Ratio Glucose Calcium Total Bilirubin AST ALT Alkaline Phosphatase Total Protein Albumin Globulin Albumin/Globulin Ratio Lipase Procalcitonin SARS-CoV-2 (PCR) Negative [facility] Medical History Aortic root dilation (05/14/20) Ascending aorta dilatation (05/14/20) BPH (benign prostatic hyperplasia) Cervical spine fracture Chronic active hepatitis C Chronic pain disorder Elevated LFTs Erectile dysfunction Hallux valgus (acquired), right foot Hepatitis C Hyperglycemia Hyperlipidemia Hypertension MRSA (methicillin resistant Staphylococcus aureus) (2015) Muscle spasm Myocardial infarction Narcotic overdose (03/06/20) Opioid overdose (11/28/20) Right foot pain Seasonal allergic rhinitis Surgical History History of surgery Hx laparoscopic cholecystectomy (02/06/19) Hx of cervical spine surgery Hx of cervical spine surgery Social History household members: spouse Smoking Status: Current every day smoker Smokeless tobacco user: other quit status: considering quitting alcohol intake: former substance use type: does not use Discharge Plan Discharge Plan Patient Disposition: Home Provider Discharge Comment: You were admitted for a kidney stone stuck in your urinary system which caused a UTI and bloodstream infection. Your blood cultures cleared after a few days of antibiotics and your infection improved. Urology placed a stent to relieve the blockage and you will need to f/u with them in clinic for stone removal. I've sent 10 more days of oral antibiotics to finish. Discharge orders & Medications Prescriptions: New levofloxacin 750 mg tablet 750 mg PO DAILY 10 Days Qty: 10 0RF Rx Instructions: start on 05/26 Continued aspirin [Adult Aspirin Regimen] 81 mg tablet,delayed release (DR/EC) 81 mg PO DAILY gabapentin 100 mg capsule 100 mg PO TID Qty: 270 3RF Rx Instructions: TAKE 1 CAPSULE BY MOUTH THREE TIMES DAILY IN ADDITION TO 800MG TABLET (TOTAL 900MG) gabapentin 800 mg tablet See Rx Instructions .ROUTE .COMPLEX Qty: 270 3RF Dose Instruction: TAKE 1 TABLET BY MOUTH THREE TIMES DAILY IN ADDITION TO 100MG CAPSULE (TOTAL 900MG) Rx Instructions: TAKE 1 TABLET BY MOUTH THREE TIMES DAILY IN ADDITION TO 100MG CAPSULE (TOTAL 900MG) metoprolol tartrate 25 mg tablet 25 mg PO BID Qty: 180 3RF lisinopril 5 mg tablet 5 mg PO DAILY Qty: 90 3RF duloxetine 60 mg capsule,delayed release(DR/EC) See Rx Instructions .ROUTE .COMPLEX Qty: 90 0RF Dose Instruction: TAKE 1 CAPSULE BY MOUTH EVERY DAY Rx Instructions: TAKE 1 CAPSULE BY MOUTH EVERY DAY Cerovite Senior Tablet 1 tab PO DAILY tamsulosin 0.4 mg capsule 0.4 mg PO BID Qty: 180 3RF oxycodone 40 mg Tablet Extended Release 12 Hr 40 mg PO BID oxycodone 20 mg Tablet 20 mg PO Q4H PRN (Reason: Pain (Scale Score 4-6)) Follow up/Referrals: Lili West MD [Physician] - 2 Weeks Gilles Espinoza DO [Primary Care Provider] - 2 Weeks Visit Report/Discharge Packet Instructions: DI for Cystoscopy Stand Alone Forms: Patient Portal/API, Stroke Signs & Symptoms Discharge Data Primary Care Provider: Gilles Espinoza
--- NOTE | 2022-05-25 18:01 | SUR.PHASEII ---
Pt up and steady on feet to BR. Denies pain, dizziness or nausea. Pittman tinged urine. Pt verbalized understanding of discharge intructions including reasons to call the MD and to return to ED.
== END 2022-05-25 18:03 | disposition home or self-care (01) | DRG 872 ==
LOC: ED 05-25 09:12 → AC 05-25 10:21
PROVIDERS: Emergency Medicine; Admitting Provider Student in an Organized Health Care Education/Training Program; Emergency Provider Emergency Medicine; Family Provider Internal Medicine; PCP Family Medicine; Referring Provider Specialist; Visit Provider Student in an Organized Health Care Education/Training Program
PROC: 0T9780Z Drainage of Left Ureter with Drainage Device, Via Natural or Artificial Opening Endoscopic (ICD-10-PCS; CPT 52330; principal; 2022-05-25 17:10)
DX: A41.9 Sepsis, unspecified organism (principal); N20.1 Calculus of ureter; N13.6 Pyonephrosis; B96.20 Unspecified Escherichia coli [E. coli] as the cause of diseases classified elsewhere; F32.A Depression, unspecified; M48.02 Spinal stenosis, cervical region; N40.0 Benign prostatic hyperplasia without lower urinary tract symptoms; I10 Essential (primary) hypertension; K73.9 Chronic hepatitis, unspecified; F17.290 Nicotine dependence, other tobacco product, uncomplicated; Z20.822 Contact with and (suspected) exposure to COVID-19
CPT/HCPCS: 52330; 52332; 36415; 71045; 74018; 74176; 74177; 76000; 80048; 80053; 81003; 81015; 82962; 83605; 83690; 84145; 85025; 87040; 87077; 87086; 87150; 87186; 87205; 87635; 93005; 96365; 96366; 96375; 96376; 99284; 99285; C9803; G0378; J0696; J1100; J1170; J1885; J2250; J2270; J2405; J2704; J3010; Q9967

== ENCOUNTER → 2022-05-31 08:57 | Outpatient (CLI) | payer OTHER, SELFPAY ==
--- NOTE | 2022-05-31 08:59 | DI.RAD.S_ITS ---
PROCEDURE: XR KUB INDICATIONS: Kidney stone TECHNIQUE: One view of the abdomen acquired. COMPARISON: [facility], CT, CT KIDNEY URETER BLADDER (KUB), 05/23/2022, 10:25. [facility], CR, XR ABDOMEN 1V, 05/25/2022, 18:03. [facility], CR, XR KUB, 05/25/2022, 9:47. FINDINGS: Surgical changes and devices: Left ureteral stent projects in the expected location and is not significantly changed. Cholecystectomy clips. Bowel: Bowel gas pattern is normal. Soft tissues: No obvious kidney stone. Somewhat prominent stool in the colon. No suspicious abdominal calcifications. Visualized solid organ contours appear normal in size. Bones: No suspicious bony lesions. IMPRESSION: Left ureteral stent projects in the expected location. Somewhat prominent stool in the colon. Dictated by: Mauricio Cross M.D. on 05/31/2022 at 11:34 Approved by: Mauricio Cross M.D. on 05/31/2022 at 11:36
[2022-05-31 11:31] LABS: Prostate Specific Antigen 1.38 ng/mL (0.10-4.00)
== END ==
PROVIDERS: Family Provider Internal Medicine; PCP Family Medicine; Referring Provider Specialist; Visit Provider Specialist
DX: N40.1 Benign prostatic hyperplasia with lower urinary tract symptoms (principal); N13.2 Hydronephrosis with renal and ureteral calculous obstruction; N13.8 Other obstructive and reflux uropathy; Z96.0 Presence of urogenital implants
CPT/HCPCS: 36415; 74018; 84153

== ENCOUNTER → 2022-06-02 13:44 | Outpatient (CLI) | payer OTHER, SELFPAY | PROVIDERS: Family Provider Internal Medicine; PCP Family Medicine; Visit Provider Specialist | DX: N40.1 Benign prostatic hyperplasia with lower urinary tract symptoms (principal); N13.2 Hydronephrosis with renal and ureteral calculous obstruction; N13.8 Other obstructive and reflux uropathy; N39.0 Urinary tract infection, site not specified; Z87.440 Personal history of urinary (tract) infections | CPT/HCPCS: 87086; 99215 ==

== ENCOUNTER → 2022-06-07 15:17 | Outpatient (CLI) | payer OTHER, SELFPAY ==
[2022-06-07 17:03] LABS: Appearance Urine UA CLEAR; Bilirubin Urine UA NEGATIVE (NEGATIVE); Color Urine UA YELLOW; Glucose Urine UA NEGATIVE (Negative); Ketones Urine UA NEGATIVE (NEGATIVE); Leukocyte Esterase Urine UA TRACE (NEGATIVE); Nitrite Urine UA NEGATIVE (Negative); Occult Blood Urine UA 2+ (Negative); Protein Urine UA 1+ (Negative); Urobilinogen Urine UA 0.2 E.U./dL (0.2); pH Urine UA 5.5 (4.5-8.0)
[2022-06-07 17:12] LABS: Bacteria Urine Few (2-10); RBC Urine 5-10/HPF (0-5/HPF); Renal Epithelial Cells Urine 0-1/HPF (0-1/HPF); Squamous Epithelial Cell Urine 0-1 /HPF (0-5/HPF); Transitional Epi Cells Urine 0-1/HPF (0-5/HPF); WBC Urine 10-30/HPF (0-5/HPF)
[2022-06-07 17:13] LABS: Culture Indicated Urine Specimen Cultured; Urine Comments WBC CLUMPS PRESENT
== END ==
PROVIDERS: Family Provider Internal Medicine; PCP Family Medicine; Referring Provider Specialist; Visit Provider Specialist
DX: N13.2 Hydronephrosis with renal and ureteral calculous obstruction (principal); N39.0 Urinary tract infection, site not specified
CPT/HCPCS: 81001; 87086

== ENCOUNTER → 2022-06-08 17:17 | Outpatient (CLI) | payer OTHER, SELFPAY ==
--- NOTE | 2022-06-08 17:20 | DI.CT.S_ITS ---
PROCEDURE: CT KIDNEY URETER BLADDER (KUB) INDICATIONS: Cystoscopy/placement left ureteral stent TECHNIQUE: Axial sections were acquired from the lung bases to the pubic symphysis. Coronal and sagittal reformats were performed. For radiation dose reduction, the following was used: automated exposure control, adjustment of mA and/or kV according to patient size. COMPARISON: [facility], CT, CT KIDNEY URETER BLADDER (KUB), 05/23/2022, 10:25. FINDINGS: Image quality: Excellent. Lung bases: Minimal left effusion and dependent changes, improved compared to prior exam.. Heart: No significant findings. URINARY: Right Kidney: No stones or hydronephrosis. Right Ureter: No hydroureter. Left Kidney: There is perinephric stranding which has slightly decreased compared to prior exam. There has been interval placement of a ureterovesicular stent. Previous hydronephrosis has resolved. Left inferior pole renal calcification measuring 5 mm, Hounsfield units 510, appearing new compared to prior exam. Previous left ureteral calcification is not definitively identified. Left Ureter: No hydroureter. Bladder: Bladder is incompletely distended. ABDOMEN: Liver: Unremarkable. Gallbladder: Removed. Biliary ducts: Unremarkable. Pancreas: Unremarkable. Spleen: Unremarkable. Adrenal Glands: Unremarkable. Stomach and Bowel: Stomach, small bowel loops, and colon are unremarkable. Peritoneum: No abnormal intraperitoneal fluid. No free air. Ventral Wall: No hernia. Abdominal Nodes: No enlarged retroperitoneal or mesenteric lymph nodes. Vessels: Aorta and inferior vena cava are normal in size. PELVIS: Pelvic Organs: Unremarkable. Pelvic Nodes: Unremarkable. Miscellaneous: Bilateral fat containing inguinal hernias are present. Bones: Unremarkable. IMPRESSION: Interval placement of left ureterovesicular stent with decompression previous obstruction. Previous left ureteral calcification is no longer visualized. However, there appears to be a new calcification within the inferior left renal pole. This could be secondary to retrograde migration of previous ureteral stone. Dictated by: Viki Verdin M.D. on 06/08/2022 at 18:16 Approved by: Viki Verdin M.D. on 06/08/2022 at 18:20
== END ==
PROVIDERS: Family Provider Internal Medicine; PCP Family Medicine; Referring Provider Specialist; Visit Provider Specialist
DX: N13.2 Hydronephrosis with renal and ureteral calculous obstruction (principal); K40.20 Bilateral inguinal hernia, without obstruction or gangrene, not specified as recurrent; Z96.0 Presence of urogenital implants
CPT/HCPCS: 74176

== ENCOUNTER → 2022-06-15 11:17 | Outpatient (CLI) | payer OTHER, SELFPAY ==
--- NOTE | 2022-06-15 11:18 | DI.RAD.S_ITS ---
PROCEDURE: XR KUB INDICATIONS: ureteral calculus TECHNIQUE: One view of the abdomen acquired. COMPARISON: [facility], CT, CT KIDNEY URETER BLADDER (KUB), 06/08/2022, 17:25. [facility], CR, XR KUB, 05/31/2022, 9:43. FINDINGS: Surgical changes and devices: Left nephroureteral stent is stable in position and orientation. Cholecystectomy clips. Bowel: Bowel gas pattern is normal. Soft tissues: 9 mm collection of probably a few discrete calculi projects over the lower pole left kidney region, slightly changed in orientation and similar in size compared to the prior studies. No visible calcifications along the course of the left ureter. Bones: No suspicious bony lesions. Nonunited, remote right greater trochanter fracture. IMPRESSION: 1. Left lower pole probably intrarenal calculi redemonstrated. 2. Stable position of left nephroureteral stent. Dictated by: Celia Kyle M.D. on 06/15/2022 at 13:47 Approved by: Celia Kyle M.D. on 06/15/2022 at 13:53
== END ==
PROVIDERS: Family Provider Internal Medicine; PCP Family Medicine; Referring Provider Specialist; Visit Provider Specialist
DX: N13.2 Hydronephrosis with renal and ureteral calculous obstruction (principal); Z96.0 Presence of urogenital implants
CPT/HCPCS: 74018; 99215

== ENCOUNTER → 2022-07-14 09:00 | Outpatient (CLI) | payer OTHER, SELFPAY ==
--- NOTE | 2022-07-14 | DI.ECHO.S_ITS ---
[facility] +---------+ : : [address] : [place] : : : : [phone] : : : : Phone: [phone]---------+ Echocardiogram Report + + :Name: MIKY NICOLE Study Date: 07/14/2022 Height: 74 in : :[facility] : Weight: 220 lb : : Gender: Male BSA: 2.3 m2 : :: 1955 Age: 66 yrs BP: 168/88 mmHg: :Reason For Study: Chest Pain : :Ordering Physician: Janae : :Rodrigo Hall Performed By: Shala Ward : :Referring: JANAE HALL : + + Interpretation Summary The left ventricle is normal in size. Left ventricular systolic function is normal. The ejection fraction is estimated to be 55-60%. This is unchanged compared to the previous study. The right ventricle is borderline dilated. The right ventricular systolic function is normal. There is mild tricuspid regurgitation. Compared to the prior echo exam, there has been no change in TR severity. The right ventricular systolic pressure is estimated to be at least 49 mmHg based on an estimated right atrial pressure of 15 mm Hg. Previously 25 mmHg. Compared to the prior echo exam, there has been an increase in the severity of pulmonary hypertension. The ascending aorta is mild-moderately enlarged. 4.1 cm in diameter. Unchanged from the previous study. Procedure: A two-dimensional transthoracic echocardiogram with color flow and Doppler was performed. The study quality was technically good. There has been no significant change since the previous study. The patient was in sinus bradycardia with heart rates between 46-65 bpm during the exam. Left Ventricle: There is borderline concentric left ventricular hypertrophy. The left ventricle is normal in size. There is no thrombus. The ejection fraction is estimated to be 55-60%. Left ventricular systolic function is normal. This is unchanged compared to the previous study. There are no focal wall motion abnormalities. Diastolic parameters suggest a relaxation abnormality of the left ventricle, consistent with probable normal filling pressures. Right Ventricle: The right ventricle is borderline dilated. The right ventricular systolic function is normal. Atria: The left atrium is moderately dilated. There has been no significant change since the previous study. The right atrium is mildly dilated. There is no Doppler evidence for an interatrial shunt. Mitral Valve: The mitral valve leaflets are slightly calcified. The mitral valve leaflets appear borderline thickened, but open well. There is mild mitral regurgitation. There has been no significant change since the previous study. Aortic Valve: The aortic valve is normal in structure and function. The aortic valve is trileaflet. There is no aortic valve stenosis. There is trace aortic regurgitation. Tricuspid Valve: The tricuspid valve is normal in structure and function. There is mild tricuspid regurgitation. The right ventricular systolic pressure is estimated to be at least 49 mmHg based on an estimated right atrial pressure of 15 mm Hg. Compared to the prior echo exam, there has been no change in TR severity. Compared to the prior echo exam, there has been an increase in the severity of pulmonary hypertension. Pulmonic Valve: The pulmonic valve leaflets are thin and pliable; valve motion is normal. There is no pulmonic valvular regurgitation. Great Vessels: The aortic root is mildly dilated. The ascending aorta is mild-moderately enlarged. The IVC is dilated (diameter is greater than 2.1 cm) and it collapses less than 50% with a sniff. This suggests a high right atrial pressure of 15 mm Hg. Pericardium/ Pleura There is no pericardial effusion. There is no pleural effusion. MMode/2D Measurements & Calculations LVIDd: 5.1 cm LVOT diam: 2.3 cm LVIDs: 3.7 cm Ao root diam: 4.1 cm FS: 27.5 % asc Aorta Diam: 4.1 cm EPSS: 0.30 cm IVSd: 1.1 cm LVPWd: 1.1 cm LV coles. diameter/BSA (cm/m^2): 2.3 LV sys. diameter/BSA (cm/m^2): 1.6 LA dimension: 3.9 cm RA long axis: 5.4 cm LA A2 area: 24.5 cm2 RA area: 22.7 cm2 LA A4 area: 25.3 cm2 RA vol: 81.1 ml LA length (vol): 5.5 cm RA : 35.8 ml/m2 LA vol: 95.3 ml LA vol index: 42.1 ml/m2 RVD1 (basal): 4.3 cm LVLs ap4: 7.1 cm LVLd ap2: 8.9 cm TAPSE_phl: 3.1 cm LVLs ap2: 7.8 cm Doppler Measurements & Calculations Ao V2 max: 132.0 cm/sec LVOT Max Carlos: 80.3 cm/sec Ao V2 mean: 100.0 cm/sec LV V1 max P.6 mmHg Ao max P.0 mmHg LV V1 VTI: 20.5 cm Ao mean P.0 mmHg COREY(I,D): 2.7 cm2 Ao V2 VTI: 31.5 cm COREY(V,D): 2.5 cm2 sev ratio: 0.65 COREY indexed to BSA (cm^2/m^2): 1.2 MV E max carlos: 76.7 cm/sec TR max carlos: 293.0 cm/sec MV A max carlos: 93.4 cm/sec TR max P.3 mmHg MV E/A: 0.82 PA V2 max: 93.3 cm/sec Med Peak E' Carlos: 5.1 cm/sec PA V2 mean: 67.0 cm/sec E/E' med: 15.0 PA mean P.0 mmHg Lat Peak E' Carlos: 9.3 cm/sec E/E' lat: 8.3 E/e' average: 11.6 MV dec time: 0.22 sec MVA(VTI): 2.9 cm2 MV V2 mean: 48.0 cm/sec SV(LVOT): 85.2 ml MV mean P.0 mmHg MV V2 VTI: 29.7 cm AV VR_phl: 0.61 MV P1/2t-pr_phl: 65.0 msec COREY(VTI)/BSA_phl: 1.2 Reading Physician:05:33 PM
== END ==
PROVIDERS: Family Provider Internal Medicine; PCP Family Medicine; Referring Provider Internal Medicine Cardiovascular Disease; Visit Provider Internal Medicine Cardiovascular Disease
DX: I77.810 Thoracic aortic ectasia (principal); I08.1 Rheumatic disorders of both mitral and tricuspid valves; I77.89 Other specified disorders of arteries and arterioles; R07.9 Chest pain, unspecified
CPT/HCPCS: 93306

== ENCOUNTER 2022-07-15 06:33 | Day surgery (SDC) | payer OTHER, SELFPAY ==
[2022-07-13 08:08] VITALS: BMI 29.7
[2022-07-15] VITALS (7 sets, daily range): BP systolic 138–172; BP diastolic 76–92; PULSE 60–68; RESP 11–18; TEMP 36.2–36.6; O2SAT 90–96; BMI 28.2
--- NOTE | 2022-07-15 07:08 | PM.PREOP ---
Pre-operative Note COVID-19 Criteria for continued procedure: Expected advancement of disease process, Continuing or worsening of significant or severe pain, Deterioration of the patient's condition or overall health, Delay expected to result in less-positive ultimate med/surg outcome and Non-surgical alternatives not available or appropriate per current SOC Interval Note History & Physical reviewed/Exam performed by Physician: Yes Changes to H&P: No
--- NOTE | 2022-07-15 07:30 | SUR.OPER ---
Supine on ESWL bed, head on pillow, arms padded and tucked at sides, legs uncrossed, safety belt at thigh.
[2022-07-15] MEDS: LACTATED RINGERS 1,000 ML 21 ML IV (07:47)
--- NOTE | 2022-07-15 08:57 | SUR.OPER ---
Lithotomy on ESWL table, head on pillow, arms tucked and padded at sides. Legs secured in padded stirrups.
[2022-07-15] MEDS: FUROSEMIDE 20 MG/2 ML VIAL IV (09:11)
--- NOTE | 2022-07-15 09:13 | PM.OP.1 ---
Operative Date/Time/Diagnoses Date of procedure: 07/15/22 Time of procedure: 08:45 Pre-op diagnosis: 1. Left renal calculus. 2. History of E coli urosepsis and obstructing left proximal ureteral calculus. 3. Retained left ureteral stent. Post-op diagnosis: same Procedure & Clinicians Procedure: 1. Left extracorporeal shockwave lithotripsy (maximal power level 6.0 x 2000 shocks). 2. Cystoscopy/removal left ureteral stent. Same procedure as scheduled: Yes Indications: 1. Left renal calculus. 2. History of E coli urosepsis and obstructing left proximal ureteral calculus. 3. Retained left ureteral stent. Surgeon: Lili West Click Yes if Unassisted: Yes Anesthesia Type: General Operative Notes Findings: 1. Index calculus identified in the left lower pole collecting system unchanged in position compared to preoperative imaging. 2. No change in lower urinary tract findings other than interval development of bullous edema and erythema surrounding the left ureteral orifice and intact left indwelling ureteral stent. Closure Type: not applicable Specimen(s): none sent Estimated Blood Loss (mL): 0 Procedure in detail: Patient was positioned in supine was administered general anesthesia. The above described calculus was identified in the X, Y, and Z plane. Lithotripsy was commenced at minimal power level for 200 shocks. A 2 minute pause was then conducted. Lithotripsy was then resumed and gradually the power level was increased to maximum of 6.0. The stone and its fragments were visualized as needed throughout the case fluoroscopically. A 2000 shocks there was excellent radiographic evidence of stone comminution. The patient was then positioned in semi lithotomy. The lower abdomen, genitalia, and groin were then prepped and draped in sterile fashion. The 22 [place] nichole endoscope was then passed the lower urinary tract and advanced proximally. The stent was visualized and using an alligator foreign body grasper the stent was engaged. The bladder was then to incompletely and the nichole endoscope with engaged left ureteral stent were removed completely. The patient was then repositioned in supine, was awakened, transferred to [facility], and then transported recovery in stable condition. Complications: none Post-operative Condition: stable Disposition: PACU Plan for aftercare: Discharge home
[2022-07-15] MEDS: LACTATED RINGERS 1,000 ML 42 ML IV (09:30)
== END 2022-07-15 09:40 | disposition home or self-care (01) ==
PROVIDERS: Family Provider Internal Medicine; PCP Family Medicine; Referring Provider Specialist; Visit Provider Specialist
PROC: (CPT 50590; principal; 2022-07-15 07:45)
PROC: (CPT 50590; 2022-07-15 07:45)
DX: N20.0 Calculus of kidney (principal); Z45.9 Encounter for adjustment and management of unspecified implanted device; Z96.0 Presence of urogenital implants
CPT/HCPCS: 50590; J1100; J1885; J1940; J2310; J2405; J2704; J3010

== ENCOUNTER → 2022-08-03 14:20 | Outpatient (CLI) | payer OTHER, SELFPAY ==
[2022-08-03 15:17] LABS: Add Manual Diff / Slide Review NO; Basophils Absolute Auto 0 /uL (0-100); Basophils Percent Auto 0.5 % (0-2); Eosinophils Absolute Auto 100 /uL (0-450); Eosinophils Percent Auto 1.6 % (2-4); Hemoglobin 14.7 g/dL (13.5-17.5); Lymphocytes Absolute Auto 2500 /uL (1100-4500); Lymphocytes Percent Auto 38.9 % (25-40); Mean Corpuscular HGB Conc 33.5 % (30-36); Mean Corpuscular Hemoglobin 29.2 PG (26-34); Mean Corpuscular Volume 87.1 fL (80-100); Monocytes Absolute Auto 700 /uL (0-900); Monocytes Percent Auto 10.3 % (3-14); Neutrophils Absolute Auto 3200 /uL (1500-7000); Neutrophils Percent Auto 48.7 % (50-75); Platelet Count 299 X10^3/uL (150-400); Red Blood Cell Count 5.05 X10^6/uL (4.5-5.9); Red Cell Distribution Width 14.4 % (11.6-14.8); White Blood Cell Count 6.6 X10^3/uL (4.5-11.0)
[2022-08-03 15:36] LABS: Hemoglobin A1C% w Est Avg Glu 5.3 % (4.0-6.0)
[2022-08-03 15:48] LABS: Uric Acid 4.8 mg/dL (3.5-8.5)
[2022-08-03 15:51] LABS: Alanine Aminotransferase 21 IU/L (<50); Albumin 4.1 g/dL (3.5-5.0); Albumin Globulin Ratio 1.2 (1.0-2.8); Alkaline Phosphatase 65 U/L (38-126); Aspartate Aminotransferase 30 IU/L (17-59); BUN Creatinine Ratio 17.7 (6-22); Bilirubin Total 0.7 mg/dL (0.2-1.3); Blood Urea Nitrogen 11 mg/dL (9-20); Carbon Dioxide 27 mmol/L (22-32); Chloride 100 mmol/L (98-107); Cholesterol 179 mg/dL (140-199); Estimated Glomerular Filt Rate > 60 mL/min (>60); Globulin 3.4 g/dL (1.7-4.1); Glucose 93 mg/dL (80-110); HDL Cholesterol 46 mg/dL (40-60); LDL Cholesterol Calculated 110 mg/dL (<100); Potassium 4.8 mmol/L (3.4-5.1); Sodium 134 mmol/L (137-145); Total Protein 7.5 g/dL (6.3-8.2); Triglycerides 115 mg/dL (35-150)
[2022-08-03 15:52] LABS: HEMOLYSIS 89 (0-50)
[2022-08-03 16:20] LABS: TSH w/ Reflex to FT4 1.97 uIU/mL (0.47-4.68)
[2022-08-05 09:53] LABS: Prostate Specific Antigen 0.753 ng/mL (0.10-4.00)
[2022-08-08 12:00] LABS: Calcium 9.2 mg/dL (8.6-10.2); Parathyroid Hormone, Intact 66 pg/mL (15-65)
== END ==
PROVIDERS: Family Provider Internal Medicine; PCP Family Medicine; Referring Provider Specialist; Visit Provider Specialist
DX: N40.1 Benign prostatic hyperplasia with lower urinary tract symptoms (principal); N20.0 Calculus of kidney; R73.9 Hyperglycemia, unspecified; I10 Essential (primary) hypertension; N13.8 Other obstructive and reflux uropathy; R79.89 Other specified abnormal findings of blood chemistry; B18.2 Chronic viral hepatitis C; E78.2 Mixed hyperlipidemia
CPT/HCPCS: 36415; 80053; 80061; 82310; 83036; 83970; 84153; 84443; 84550; 85025

== ENCOUNTER → 2022-08-20 08:14 | Outpatient (ROUT) | payer OTHER, SELFPAY ==
[2022-08-26 13:21] LABS: Ca oxalate dihydrate 50 % (.); Ca oxalate monohydr 50 % (.); Size 3x2 mm (.)
== END ==
PROVIDERS: Family Provider Internal Medicine; PCP Family Medicine; Visit Provider Specialist
DX: N20.0 Calculus of kidney (principal)
CPT/HCPCS: 82365

== ENCOUNTER → 2022-09-28 12:35 | Outpatient (CLI) | payer OTHER, SELFPAY ==
--- NOTE | 2022-09-28 12:37 | DI.RAD.S_ITS ---
PROCEDURE: XR KUB INDICATIONS: history of renal stones TECHNIQUE: One view of the abdomen acquired. COMPARISON: [facility], CR, XR KUB, 06/15/2022, 11:17. FINDINGS: Surgical changes and devices: There are surgical clips in the gallbladder fossa. Interval removal of a left nephroureteral stent. Bowel: Bowel gas pattern is normal. There is: Gas overlying renal shadows. Soft tissues: No suspicious abdominal calcifications. Right-sided pelvic calcifications are stable, presumed phleboliths. Colonic gas overlies the right kidney region and a definite calcification cannot be identified. Visualized solid organ contours appear normal in size. Bones: No suspicious bony lesions. IMPRESSION: 1. Suboptimal imaging secondary to presence of colon gas overlying kidney shadows. Recommend CT KUB to assess for presence of stones.. Dictated by: Celia Kyle M.D. on 09/28/2022 at 15:08 Approved by: Celia Kyle M.D. on 09/28/2022 at 15:10
== END ==
PROVIDERS: Family Provider Internal Medicine; PCP Family Medicine; Referring Provider Specialist; Visit Provider Specialist
DX: N40.1 Benign prostatic hyperplasia with lower urinary tract symptoms (principal); N13.8 Other obstructive and reflux uropathy; N20.0 Calculus of kidney
CPT/HCPCS: 74018

== ENCOUNTER 2022-10-07 10:21 | Day surgery (SDC) | payer OTHER, SELFPAY ==
[2022-10-04 12:57] VITALS: BMI 29.2
[2022-10-07] VITALS (8 sets, daily range): BP systolic 138–175; BP diastolic 74–89; PULSE 67–87; RESP 12–20; TEMP 36.2–36.8; O2SAT 93–97; BMI 29.2
[2022-10-07] MEDS: LACTATED RINGERS 1,000 ML 42 ML IV (11:30)
--- NOTE | 2022-10-07 12:48 | P.OP_ITS ---
Operative Date/Time/Diagnoses Date of procedure: 10/07/22 Time of procedure: 12:48 Pre-op diagnosis: Right first metatarsophalangeal joint arthritis, pain Post-op diagnosis: same Procedure & Clinicians Procedure: Right first metatarsophalangeal joint arthrodesis Same procedure as scheduled: Yes Indications: 66-year-old male with painful arthritis to the right great toe joint. Conservative measures have failed to alleviate his pain and he wished to have surgical intervention this time. We spoke with the risks and potential complications as well as expected outcomes. Consent is signed and there are no contraindications to the procedure at this time. Surgeon: Naa Peralta Click Yes if Unassisted: Yes Anesthesia Type: General Operative Notes Closure Type: primary Specimen(s): none sent Prosthetic devices, grafts, tissues, transplants, or devices: [place] great toe fusion plate. 4.0 cannulated screw (1), 3.5 locking (5) and non-locking (1) screws. Estimated Blood Loss (mL): 30 Blood products transfused: none Tourniquet time (min): 101 Procedure in detail: The patient was brought to the operating room and placed on the operating table in the supine position. A tourniquet was placed about the patient's right thigh. After induction of general anesthesia the foot and ankle were prepped and draped in the usual aseptic manner. The tourniquet was inflated. Incision was made over the dorsal aspect of the right 1st metatarsophalangeal joint. The incision was deepened through subcutaneous tissues being careful to identify and retract all vital neurovascular structures. All bleeders were cauterized and ligated necessary. A significant amount of scar tissue was noted along all sides of the first metatarsophalangeal joint as the capsule was opened. I also noted a flattened first metatarsal head with moderate joint damage and the phalangeal base had much more damage to the central cartilage and wearing of the articular surface. A saw was used to resect the dorsal and medial bony enlargements. The saw was used to resect the cartilage off the head of the first metatasal head. The saw and currette were used to resect the cartilage off the base of the proximal phalanx. I was able to angle both sides f or good alignment and created flatter base to allow for good bony apposition. Subchondral drilling was performed to first metatarsal head and fishscaling to the proximal phalanx base. The area was irrigated with copious amount of normal sterile saline. Temporary fixation across the joint was placed with a guidewire and this was checked under C-arm to be in appropriate alignment. A plate was chosen and any further reduction of prominences dorsally was performed with a rasp and rongeur. Using the aid of fluoroscopy, the guide wire was used as cannulation for the drill for a 4.0 lag screw from the distal medial to proximal lateral 1st metatarsal phalangeal joint. Confirmed appropriate in all 3 planes, a partially threaded screw was placed and the guidewire removed. Good strength and reduc tion of the former joint. Plate was placed and with the aid of fluoroscopy a series of locking screws and a nonlocking screw were placed across the plate and steadied the joint well. These were checked on mini C-arm. The area is irrigated with copious amounts of normal sterile saline. The tourniquet was deflated and a prompt hyperemic response was seen to the foot. No motion was noted at the 1st metatarsophalangeal joint. Subcutaneous closure was performed using Vicryl and nylon was used to close the skin. A sterile lightly compressive dressing was placed on the foot and he was placed in his postoperative boot. He was transferred to the PACU with vital signs stable and vascular status intact. Complications: none Post-operative Condition: stable Disposition: PACU Plan for aftercare: Following a period of postoperative monitoring, the patient will be discharged to home on written and oral postoperative instructions including keeping the dressing dry and intact, no weight to the surgical foot, icing and elevating the foot when seated home. DVT prevention techniques have been reviewed. For the 1st postoperative visit the dressing will be changed and close to the 4th postoperative week we will likely take first set of WB x-rays of the foot.
--- NOTE | 2022-10-07 12:48 | PM.PREOP ---
Pre-operative Note Interval Note History & Physical reviewed/Exam performed by Physician: Yes Changes to H&P: No
[2022-10-07] MEDS: CEFAZOLIN 2 GM/100 ML PREMIX 100 ML IV (13:05)
--- NOTE | 2022-10-07 13:28 | SUR.OPER ---
Supine on padded OR bed, head on pillow, arms secured on padded arm boards at <90 degrees abduction, legs uncrossed, safety belt at thigh, tape over blanket over lower legs.
[2022-10-07] MEDS: BUPIVACAINE 0.5% (PF) 10 ML VIAL 20 ML INJ (13:42)
[2022-10-07] MEDS: LACTATED RINGERS 1,000 ML 120 ML IV (13:43)
[2022-10-07] MEDS: OXYCODONE IR 5 MG TABLET 10 MG PO (16:00)
--- NOTE | 2022-10-07 16:35 | SUR.PHASEII ---
DC home with . aware he is NWB on foot. all belongings with patient
== END 2022-10-07 16:37 | disposition home or self-care (01) ==
PROVIDERS: Family Provider Internal Medicine; PCP Family Medicine; Referring Provider Podiatrist; Visit Provider Podiatrist
PROC: (CPT 28750; principal; 2022-10-07 12:30)
DX: M20.5X1 Other deformities of toe(s) (acquired), right foot (principal); M79.674 Pain in right toe(s)
CPT/HCPCS: 28750; C1734; J0690; J1100; J2250; J2405; J2704; J3010

== ENCOUNTER → 2022-10-10 14:38 | Outpatient (CLI) | payer OTHER, SELFPAY ==
--- NOTE | 2022-10-10 14:40 | DI.CT.S_ITS ---
PROCEDURE: CT KIDNEY URETER BLADDER (KUB) INDICATIONS: Kidney Stones TECHNIQUE: Axial sections were acquired from the lung bases to the pubic symphysis. Coronal and sagittal reformats were performed. For radiation dose reduction, the following was used: automated exposure control, adjustment of mA and/or kV according to patient size. COMPARISON: [facility], CT, CT KIDNEY URETER BLADDER (KUB), 06/08/2022, 17:25. FINDINGS: Image quality: Excellent. Lung bases: Unremarkable. Heart: No significant findings. URINARY: Right Kidney: No stones or hydronephrosis. Right Ureter: No hydroureter. Left Kidney: No stones or hydronephrosis. Left Ureter: No hydroureter. Bladder: Normal wall thickness. No stones. ABDOMEN: Liver: Unremarkable. Gallbladder: Surgically absent. Biliary ducts: Unremarkable. Pancreas: Unremarkable. Spleen: Unremarkable. Adrenal Glands: Unremarkable. Stomach and Bowel: Stomach, small bowel loops, and colon are unremarkable. The appendix is thin walled and gas filled. Peritoneum: No abnormal intraperitoneal fluid. No free air. Ventral Wall: No hernia. Abdominal Nodes: No enlarged retroperitoneal or mesenteric lymph nodes. Vessels: Aorta and inferior vena cava are normal in size. PELVIS: Pelvic Organs: Unremarkable. Pelvic Nodes: Unremarkable. Miscellaneous: There is a moderate-sized fat containing left inguinal hernia. Bones: Unremarkable. IMPRESSION: 1. No hydronephrosis, nephrolithiasis, hydroureter, or ureterolithiasis. 2. No acute intra-abdominal findings. Normal appendix. Dictated by: Wandy Ramey M.D. on 10/10/2022 at 16:45 Approved by: Wandy Ramey M.D. on 10/10/2022 at 16:47
== END ==
PROVIDERS: Family Provider Internal Medicine; PCP Family Medicine; Referring Provider Specialist; Visit Provider Specialist
DX: N40.1 Benign prostatic hyperplasia with lower urinary tract symptoms (principal); Z87.440 Personal history of urinary (tract) infections; N13.8 Other obstructive and reflux uropathy; Z87.442 Personal history of urinary calculi
CPT/HCPCS: 74176

== ENCOUNTER → 2023-01-09 15:51 | Outpatient (CLI) | payer OTHER, SELFPAY ==
--- NOTE | 2023-01-09 | DI.ECHO.S_ITS ---
[facility]---------[facility] +---------+ : : [address] : [address] [place] : : : : [id number] : : : : Phone: [phone]---------+ Echocardiogram Report + + :Name: MIKY NICOLE Study Date: 01/09/2023 Height: 74 in : :[facility] ReadingLocation: Weight: 227 lb : : Gender: Male BSA: 2.3 m2 : :: 1955 Age: 67 yrs BP: 116/70 mmHg: :Reason For Study: Thoracic Aortic Ectasia : :Ordering Physician: RAFAEL, : :JANAE Performed By: Fadia Johnson : :Referring: JANAE HALL : + + Interpretation Summary The patient was in sinus bradycardia with heart rates between 48-52 bpm during the exam. The left ventricle is normal in size. The left ventricular ejection fraction is normal. The ejection fraction is estimated to be 60-65%. The right ventricle is mildly dilated. The right ventricular systolic function is normal. There is mild tricuspid regurgitation. Compared to the prior echo exam, there has been no change in TR severity. The right ventricular systolic pressure is estimated to be at least 33 mmHg based on an estimated right atrial pressure of 8 mm Hg. Previously 49 mmHg. Compared to the prior echo exam, there has been a decrease in the severity of pulmonary hypertension. The ascending aorta is mild-moderately enlarged. 4.2 cm in diameter. Previously 4.1 cm. Procedure: A two-dimensional transthoracic echocardiogram with color flow and Doppler was performed. The study quality was technically adequate. Comparison is made with the echocardiogram of 07/14/2022. The patient was in sinus bradycardia with heart rates between 48-52 bpm during the exam. Left Ventricle: The left ventricle is normal in size. There is borderline concentric left ventricular hypertrophy. There has been no significant change since the previous study. There is no thrombus. The ejection fraction is estimated to be 60-65%. The left ventricular ejection fraction is normal. There are no focal wall motion abnormalities. Diastolic parameters suggest a relaxation abnormality of the left ventricle, consistent with probable normal filling pressures. Right Ventricle: The right ventricle is mildly dilated. There has been no significant change since the previous study. The right ventricular systolic function is normal. Atria: The left atrium is mildly dilated. The left atrium has mildly decreased in size since the prior echo exam. Right atrial size is normal. There is no Doppler evidence for an interatrial shunt. Mitral Valve: There is mild mitral annular calcification. The mitral valve leaflets are slightly calcified. There is no mitral valve stenosis. There is trace mitral regurgitation. Aortic Valve: The aortic valve is trileaflet. The aortic valve opens well. There is no aortic valve stenosis. No aortic regurgitation is present. Tricuspid Valve: The tricuspid valve is normal. There is no tricuspid stenosis. There is mild tricuspid regurgitation. Compared to the prior echo exam, there has been no change in TR severity. The right ventricular systolic pressure is estimated to be at least 33 mmHg based on an estimated right atrial pressure of 8 mm Hg. Compared to the prior echo exam, there has been a decrease in the severity of pulmonary hypertension. Pulmonic Valve: The pulmonic valve is not well visualized. There is no pulmonic valvular stenosis. There is trace pulmonic regurgitation. Great Vessels: The aortic root is normal size. The ascending aorta is mild- moderately enlarged. The pulmonary artery is not well visualized, but is probably normal size. The IVC is dilated (diameter is greater than 2.1 cm) yet it collapses greater than 50% with a sniff. This suggests a right atrial pressure of 8 mm Hg. Pericardium/ Pleura There is no pericardial effusion. There is no pleural effusion. MMode/2D Measurements & Calculations LVIDd: 5.3 cm LVOT diam: 2.3 cm LVIDs: 3.4 cm Ao root diam: 3.8 cm FS: 35.8 % asc Aorta Diam: 4.2 cm EPSS: 0.50 cm IVSd: 1.0 cm LVPWd: 1.1 cm LV coles. diameter/BSA (cm/m^2): 2.3 LV sys. diameter/BSA (cm/m^2): 1.5 LA A2 area: 22.8 cm2 RA long axis: 5.8 cm LA A4 area: 20.1 cm2 RA area: 20.5 cm2 LA length (vol): 5.7 cm RA vol: 61.0 ml LA vol: 68.7 ml RA : 26.6 ml/m2 LA vol index: 30.0 ml/m2 RVD1 (basal): 4.6 cm LVLs ap4: 7.4 cm LVLd ap2: 9.2 cm TAPSE_phl: 3.7 cm LVLs ap2: 7.2 cm Doppler Measurements & Calculations Ao V2 max: 150.0 cm/sec LVOT Max Carlos: 90.7 cm/sec Ao V2 mean: 102.0 cm/sec LV V1 max P.3 mmHg Ao max P.0 mmHg LV V1 VTI: 24.0 cm Ao mean P.0 mmHg COREY(I,D): 2.6 cm2 Ao V2 VTI: 39.0 cm COREY(V,D): 2.5 cm2 sev ratio: 0.61 COREY indexed to BSA (cm^2/m^2): 1.1 MV E max carlos: 83.0 cm/sec TR max carlos: 251.5 cm/sec MV A max carlos: 73.4 cm/sec TR max P.3 mmHg MV E/A: 1.1 PA V2 max: 89.0 cm/sec Med Peak E' Carlos: 7.6 cm/sec PA V2 mean: 62.4 cm/sec E/E' med: 10.9 PA mean P.0 mmHg Lat Peak E' Carlos: 9.7 cm/sec PA pr(Accel): 14.6 mmHg E/E' lat: 8.6 E/e' average: 9.7 MV dec time: 0.27 sec SV(LVOT): 99.6 ml AV VR_phl: 0.60 COREY(VTI)/BSA_phl: 1.1 Reading Physician:02:22 PM
== END ==
PROVIDERS: Family Provider Internal Medicine; PCP Family Medicine; Referring Provider Internal Medicine Cardiovascular Disease; Visit Provider Internal Medicine Cardiovascular Disease
DX: I77.810 Thoracic aortic ectasia (principal); I34.81 Nonrheumatic mitral (valve) annulus calcification; I07.1 Rheumatic tricuspid insufficiency
CPT/HCPCS: 93306

== ENCOUNTER → 2023-01-26 08:39 | Outpatient (CLI) | payer OTHER, SELFPAY ==
[2023-01-26 09:59] LABS: Add Manual Diff / Slide Review NO; Basophils Absolute Auto 0 /uL (0-100); Basophils Percent Auto 0.4 % (0-2); Eosinophils Absolute Auto 200 /uL (0-450); Eosinophils Percent Auto 3.4 % (2-4); Hemoglobin 14.8 g/dL (13.5-17.5); Lymphocytes Absolute Auto 2600 /uL (1100-4500); Lymphocytes Percent Auto 42.6 % (25-40); Mean Corpuscular HGB Conc 34.5 % (30-36); Mean Corpuscular Hemoglobin 31.1 PG (26-34); Mean Corpuscular Volume 90.2 fL (80-100); Monocytes Absolute Auto 600 /uL (0-900); Monocytes Percent Auto 9.3 % (3-14); Neutrophils Absolute Auto 2800 /uL (1500-7000); Neutrophils Percent Auto 44.3 % (50-75); Platelet Count 268 X10^3/uL (150-400); Red Blood Cell Count 4.77 X10^6/uL (4.5-5.9); White Blood Cell Count 6.2 X10^3/uL (4.5-11.0)
[2023-01-26 10:46] LABS: Alanine Aminotransferase 17 IU/L (<50); Albumin 4.4 g/dL (3.5-5.0); Albumin Globulin Ratio 1.5 (1.0-2.8); Alkaline Phosphatase 63 U/L (38-126); Aspartate Aminotransferase 20 IU/L (17-59); BUN Creatinine Ratio 28.6 (6-22); Bilirubin Total 0.4 mg/dL (0.2-1.3); Blood Urea Nitrogen 22 mg/dL (9-20); Calcium 9.2 mg/dL (8.4-10.2); Carbon Dioxide 27 mmol/L (22-32); Chloride 100 mmol/L (98-107); Cholesterol 152 mg/dL (140-199); Estimated Glomerular Filt Rate > 60 mL/min (>60); Glucose 101 mg/dL (80-110); HDL Cholesterol 50 mg/dL (40-60); HEMOLYSIS < 15 (0-50); LDL Cholesterol Calculated 92 mg/dL (<100); Potassium 4.8 mmol/L (3.4-5.1); Sodium 135 mmol/L (137-145); Total Protein 7.4 g/dL (6.3-8.2); Triglycerides 50 mg/dL (35-150)
[2023-01-26 11:18] LABS: Estradiol, Total 29.5 pg/mL
[2023-02-01 08:16] LABS: Percent Free Testosterone 1.85 % (1.50-4.20); Testosterone Free 6.79 ng/dL (5.00-21.00); Testosterone Total 366.8 ng/dL (264.0-916.0)
== END ==
PROVIDERS: Family Provider Internal Medicine; PCP Family Medicine; Referring Provider Nurse Practitioner Family; Visit Provider Nurse Practitioner Family
DX: R53.83 Other fatigue (principal); Z51.81 Encounter for therapeutic drug level monitoring; E29.1 Testicular hypofunction
CPT/HCPCS: 36415; 80053; 80061; 82670; 84153; 84402; 84403; 85025

== ENCOUNTER → 2023-02-03 17:10 | Outpatient (CLI) | payer OTHER, SELFPAY | PROVIDERS: Family Provider Internal Medicine; PCP Family Medicine; Referring Provider Specialist; Visit Provider Specialist | DX: N39.0 Urinary tract infection, site not specified (principal); Z87.442 Personal history of urinary calculi | CPT/HCPCS: 87086 ==

== ENCOUNTER → 2023-02-13 15:10 | Outpatient (CLI) | payer OTHER, SELFPAY ==
[2023-02-13 15:44] LABS: Add Manual Diff / Slide Review NO; Basophils Absolute Auto 100 /uL (0-100); Basophils Percent Auto 0.8 % (0-2); Eosinophils Absolute Auto 300 /uL (0-450); Eosinophils Percent Auto 3.1 % (2-4); Hematocrit 44.2 % (41-53); Lymphocytes Absolute Auto 3100 /uL (1100-4500); Lymphocytes Percent Auto 35.4 % (25-40); Mean Corpuscular HGB Conc 33.9 % (30-36); Mean Corpuscular Hemoglobin 30.5 PG (26-34); Mean Corpuscular Volume 89.8 fL (80-100); Monocytes Absolute Auto 700 /uL (0-900); Monocytes Percent Auto 8.1 % (3-14); Neutrophils Absolute Auto 4600 /uL (1500-7000); Neutrophils Percent Auto 52.6 % (50-75); Platelet Count 293 X10^3/uL (150-400); Red Blood Cell Count 4.93 X10^6/uL (4.5-5.9); Red Cell Distribution Width 13.4 % (11.6-14.8); White Blood Cell Count 8.7 X10^3/uL (4.5-11.0)
[2023-02-13 16:05] LABS: Calcium 9.8 mg/dL (8.4-10.2)
[2023-02-13 16:07] LABS: Appearance Urine UA CLEAR; Bilirubin Urine UA NEGATIVE (NEGATIVE); Color Urine UA YELLOW; Glucose Urine UA NEGATIVE (Negative); Ketones Urine UA NEGATIVE (NEGATIVE); Leukocyte Esterase Urine UA NEGATIVE (NEGATIVE); Nitrite Urine UA NEGATIVE (Negative); Occult Blood Urine UA NEGATIVE (Negative); Protein Urine UA NEGATIVE (Negative); Urobilinogen Urine UA 0.2 E.U./dL (0.2); pH Urine UA 5.5 (4.5-8.0)
[2023-02-13 16:33] LABS: Bacteria Urine None Seen; Culture Indicated Urine Cult Not Indicated; RBC Urine None Seen (0-5/HPF); Squamous Epithelial Cell Urine None Seen (0-5/HPF); WBC Urine None Seen (0-5/HPF)
[2023-02-15 10:09] LABS: Parathyroid Hormone Int 41 pg/mL (15-65)
== END ==
PROVIDERS: Specialist; Family Provider Internal Medicine; PCP Family Medicine; Referring Provider Family Medicine; Visit Provider Family Medicine
DX: I10 Essential (primary) hypertension (principal); N20.0 Calculus of kidney; N39.0 Urinary tract infection, site not specified; R73.9 Hyperglycemia, unspecified
CPT/HCPCS: 36415; 81001; 82310; 83970; 85025